=== PATIENT | male | born 1985 | race Hispanic/Latino ===

== ENCOUNTER 2019-03-07 23:09 | Emergency (ER) | payer SELFPAY ==
[~2019-03-07] VITALS: Ht 162.6 cm; Wt 158.8 kg
--- OUTSIDE RECORDS SUMMARY | 2019-03-07 23:11 | XMS REPORT | Clinical Summary ---
Author Author [facility] Organization [facility] Address Unknown Phone Unavailable Care Team Providers Care Managing Supervisor Name Role Phone PCP Unavailable Allergies No Known Allergies Medications End Date Status Medication Sig Dispensed Refills Start Date Active acetaminophen (TYLENOL) Take 1 tablet 30 tablet 0 500 mg tabletIndications: by mouth 9 Hidradenitis, Abscess every 6 hours as needed for Pain. 02/15/2019 doxycycline monohydrate Take 1 28 capsule 0 (MONODOX) 100 mg capsule by 9 capsuleIndications: mouth 2 times Hidradenitis, Abscess daily for 14 days. 02/08/2019 mupirocin (BACTROBAN) 2 % Apply to 22 g 0 ointmentIndications: affected area 9 Hidradenitis, Abscess 3 times daily for 7 days. Active Problems Not on file Encounters Care Team Description Date Type Specialty Hayden Castellanos MD SOB (shortness of breath) (Primary Dx); Hidradenitis; Abscess 02/01/2019 Emergency Emergency Medicine 02/01/2019 Travel after 03/06/2018 Social History Date Tobacco Use Types Packs/Day Years Used Current Every Day Smoker Cigarettes 1 Smokeless Tobacco: Never Used Drinks/Week oz/Week Comments Alcohol Use No Sex Assigned at Date Recorded Not on file Industry Job Start Date Occupation Not on file Not on file Not on file Travel End Travel History Travel Start No recent travel history available. Last Filed Vital Signs Reading Time Taken Comments Vital Sign 128/72 02/01/2019 3:44 PM CDT Blood Pressure 93 02/01/2019 3:44 PM CDT Pulse 36.7 C (98.1 F) 02/01/2019 3:44 PM CDT Temperature 18 02/01/2019 3:44 PM CDT Respiratory Rate 98% 02/01/2019 3:44 PM CDT Oxygen Saturation - - Inhaled Oxygen Concentration 157.5 kg (347 lb 4.8 oz) 02/01/2019 11:35 AM CDT Weight - - Height - - Body Mass Index Plan of Treatment Health Maintenance Due Date Last Done Comments IMM Influenza Seasonal 07/13/2019 Oct to December (>/=19 yrs) Procedures Comments Procedure Name Priority Date/Time Associated Diagnosis I&D OF ABSCESS Routine 02/01/2019 3:46 PM CDT XRAY CHEST 2 VIEWS STAT 02/01/2019 SOB (shortness of breath) 1:42 PM CDT 12 LEAD EKG Routine 02/01/2019 11:43 AM CDT GLUCOSE POC Routine 02/01/2019 11:38 AM CDT after 03/06/2018 Results * I&D of Abscess (02/01/2019 3:46 PM CDT) Narrative Performed At Ivan Andrea NP 02/01/20195:29 PM I&D of Abscess Date/Time: 02/01/2019 5:25 PM Performed by: Ivan Andrea NP Authorized by: Ivan Andrea NP Consent: Consent obtained:Verbal Consent given by:Patient Risks discussed:Bleeding and infection Alternatives discussed:No treatment Location: Type:Abscess Size:0.5 cm Location:Neck Neck location:R posterior Pre-procedure details: Skin preparation:Betadine Anesthesia (see MAR for exact dosages): Anesthesia method:Topical application and local infiltration Local anesthetic:Lidocaine 1% w/o epi Procedure type: Complexity:Simple Procedure details: Needle aspiration: no Incision types:Stab incision Incision depth:Subcutaneous Scalpel blade:11 Drainage:Bloody Drainage amount:Scant Wound treatment:Wound left open Packing materials:None Post-procedure details: Patient tolerance of procedure:Tolerated well, no immediate complications * XRAY CHEST 2 VIEWS (02/01/2019 1:42 PM CDT) Specimen Impressions Performed At IMPRESSION: [facility] No acute cardiopulmonary abnormality. This [facility] radiology report is a preliminary resident dictation until finalized by an attending.Changes to this preliminary report may occur in an additional preliminary or finalized version. Signed By: Maximus Pate MD, 02/01/2019 2:45 PM Narrative Performed At EXAM: XR CHEST 2 VIEWS [facility] DATE: 02/01/2019 1:42 PM INDICATION: Shortness of breath, cough, COPD. COMPARISON: None. TECHNIQUE: PA and lateral chest radiographs FINDINGS: Lines, tubes and hardware: None. Lungs and pleura: The lungs are clear. The costophrenic sulci are sharp, without pleural effusion. No pneumothorax is identified. Heart and mediastinum: The heart size is normal. The mediastinal contours are normal. Pulmonary vascularity is normal. Bones: No acute bony abnormality. Procedure Note Interface, Rad/Mammog In - 02/01/2019 2:50 PM CDT EXAM: XR CHEST 2 VIEWS DATE: 02/01/2019 1:42 PM INDICATION: Shortness of breath, cough, COPD. COMPARISON: None. TECHNIQUE: PA and lateral chest radiographs FINDINGS: Lines, tubes and hardware: None. Lungs and pleura: The lungs are clear. The costophrenic sulci are sharp, without pleural effusion. No pneumothorax is identified. Heart and mediastinum: The heart size is normal. The mediastinal contours are normal. Pulmonary vascularity is normal. Bones: No acute bony abnormality. IMPRESSION IMPRESSION: No acute cardiopulmonary abnormality. This [facility] radiology report is a preliminary resident dictation until finalized by an attending. Changes to this preliminary report may occur in an additional preliminary or finalized version. 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: [id number] :1985-0 01-13 Requested By: HAYDEN CASTELLANOS Order Number: [id number] Reading MD: Nithin Sanchez Measurements Intervals [place] Rate: 104 P: 46 AL: 177 QRS: 85 QRSD: 92 T:25 QT: 370 QTc:487 Interpretive Statements SINUS TACHYCARDIA NONSPECIFIC T-WAVE ABNORMALITY ABNORMAL RHYTHM ECG PROLONGED QTC INTERVAL Electronically Signed On 02-01-2019 16:08:12 CDT by Nithin Sanchez Specimen Performing Organization Address City/[facility] Phone Number SMS * GLUCOSE POC (02/01/2019 11:38 AM CDT) Glucose POC 213 (H) 74 - 106 mg/dL [facility] 1 Specimen Performing Organization Address City/State/Zipcode Phone Number [facility] MAIN-[facility] 1 after 03/06/2018 Insurance Type Payer Benefit Subscriber ID Effective Phone Address Plan / Dates Group [employer] HMO [employer] xxxxxxxxx 2018- [phone] [address] [address] [place] [address]
--- OUTSIDE RECORDS SUMMARY | 2019-03-07 23:12 | XMS REPORT | Continuity of Care Document ---
Author Author [facility] Interface Address Unknown Phone Unavailable Problems Problem Status Onset Date Classification Date Reported Comments Source SOB Active 02/08/2019 [facility] Hidradenitis Active 02/08/2019 [facility] Abscess Active 02/08/2019 [facility] Medications Medication Details Route Status Patient Instructions Ordering Provider Order Date Source doxycycline monohydrate (MONODOX) 100 mg capsule Take 1 capsule by mouth 2 times daily for 14 days. Oral Active 02/01/2019 [facility] mupirocin (BACTROBAN) 2 % ointment Apply to affected area 3 times daily for 7 days. Topical Active 02/01/2019 [facility] acetaminophen (TYLENOL) 500 mg tablet Take 1 tablet by mouth every 6 hours as needed for Pain. Oral Active 02/01/2019 [facility] Allergies, Adverse Reactions, Alerts Substance Category Reaction Severity Reaction type Status Date Reported Comments Source Immunizations Immunization Date Given Site Status Last Updated Comments Source Results Order Name Results Value Reference Range Date Interpretation Comments Source 12 LEAD EKG 12 LEAD EKG FOR [facility] Test Date:2019-02-01 Pat Name: SUZE SIUDepartment: 6520 : Gender: MTechnician: [id number] :1985 Requested By: HAYDEN CASTELLANOS Order Number: [id number] : Nithin Sanchez Measurements IntervalsAxis Rate: 104P:46 ME: 177QRS:85 QRSD: 92 T:25 QT: 370 QTc:487 Interpretive Statements SINUS TACHYCARDIA NONSPECIFIC T-WAVE ABNORMALITY ABNORMAL RHYTHM ECG PROLONGED QTC INTERVAL Electronically Signed On 02-01-2019 16:08:12 CDT by Nithin Sanchez 02/01/2019 [facility] I&D of Abscess <p>Ivan Andrea NP 02/01/20195:29 PM</p><p>I&D of Abscess</p><p>Date/Time: 02/01/2019 5:25 PM</p><p>Performed by: Ivan Andrea NP</p><p>Authorized by: Ivan Andrae NP </p><p> </p><p>Consent: </p><p>Consent obtained:Verbal</p><p>Consent given by:Patient</p><p>Risks discussed:Bleeding and infection</p><p>Alternatives discussed:No treatment</p><p>Location: </p><p>Type:Abscess</p><p>Size:0.5 cm </p><p>Location:Neck</p><p>Neck location:R posterior</p><p>Pre-procedure details: </p><p>Skin preparation:Betadine</p><p>Anesthesia (see MAR for exact dosages): </p><p>Anesthesia method:Topical application and local infiltration</p><p>Local anesthetic:Lidocaine 1% w/o epi</p><p>Procedure type: </p><p>Complexity:Simple</p><p>Procedure details: </p><p>Needle aspiration: no</p><p>Incision types:Stab incision</p><p>Incision depth:Subcutaneous</p><p>Scalpel blade:11</p>&l t;p>Drainage:Bloody</p><p>Drainage amount:Scant</p><p>Wound treatment:Wound left open</p><p>Packing materials:None</p><p>Post-procedure details: </p><p>Patient tolerance of procedure:Tolerated well, no immediate </p><p>complications</p> <p>Ivan Andrea NP 02/01/20195:29 PM</p><p>I&D of Abscess</p><p>Date/Time: 02/01/2019 5:25 PM</p><p>Performed by: Ivan Andrea NP</p><p>Authorized by: Ivan Andrea NP </p><p> </p><p>Consent: </p><p>Consent obtained:Verbal</p><p>Consent given by:Patient</p><p>Risks discussed:Bleeding and infection</p><p>Alternatives discussed:No treatment</p><p>Location: </p><p>Type:Abscess</p><p>Size:0.5 cm </p><p>Location:Neck</p><p>Neck location:R posterior</p><p>Pre-procedure details: </p><p>Skin preparation:Betadine</p><p>Anesthesia (see MAR for exact dosages): </p><p>A nesthesia method:Topical application and local infiltration</p><p>Local anesthetic:Lidocaine 1% w/o epi</p><p>Procedure type: </p><p>Complexity:Simple</p><p>Procedure details: </p><p>Needle aspiration: no</p><p>Incision types:Stab incision</p><p>Incision depth:Subcutaneous</p><p>Scalpel blade:11</p>&l t;p>Drainage:Bloody</p><p>Drainage amount:Scant</p><p>Wound treatment:Wound left open</p><p>Packing materials:None</p><p>Post-procedure details: </p><p>Patient tolerance of procedure:Tolerated well, no immediate </p><p>complications</p> 02/01/2019 [facility] XRAY CHEST 2 VIEWS IMPRESSION: No acute cardiopulmonary abnormality. This [facility] radiology report is a preliminary resident dictation until finalized by an attending.Changes to this preliminary report may occur in an additional preliminary or finalized version. Signed By: Maximus Pate MD, 02/01/2019 2:45 PM EXAM: XR CHEST 2 VIEWS DATE: 02/01/2019 [...] is normal. Bones: No acute bony abnormality. Interface, Rad/Mammog In - 02/01/2019 2:50 PM [...] IMPRESSION IMPRESSION: No acute cardiopulmonary abnormality. This [facility] radiology report is a preliminary resident dictation until finalized by an attending. Changes to this preliminary report may occur in an additional preliminary or finalized version. Signed By: Maximus Pate MD, 02/01/2019 2:45 PM 02/01/2019 [facility] GLUCOSE POC Glucose POC 213 mg/dL 74 - 106 02/01/2019 [facility] GLUCOSE POC Lab Interpretation Abnormal 02/01/2019 [facility] 12 LEAD EKG 12 LEAD EKG FOR [facility] Test Date:2017-07-10 Pat Name: SUZE SIUDepartment: : Gender: MTechnician: [id number] :1985 Requested By: Order Number:Reading MD: Nithin Sanchez Measurements IntervalsAxis Rate: 83 P:35 ME: 173QRS:76 QRSD: 98 T:43 QT: 345 QTc:407 Interpretive Statements SINUS RHYTHM WITH SINUS ARRHYTHMIA NORMAL EKG Electronically Signed On 07-11-17 16:53:39 CDT by Nithin Sanchez 07/10/2017 [facility] Vital Signs Vital Sign Value Date Comments Source Systolic (mm Hg) 128 02/01/2019 [facility] Diastolic (mm Hg) 72 02/01/2019 [facility] Heart Rate 93 02/01/2019 [facility] Temperature Oral (F) 36.72 Mindy 02/01/2019 [facility] Respitory Rate 18 02/01/2019 [facility] Weight 157.534 02/01/2019 [facility] Systolic (mm Hg) 155 07/11/2017 [facility] Diastolic (mm Hg) 98 07/11/2017 [facility] Heart Rate 99 07/11/2017 [facility] Temperature Oral (F) 36.67 Mindy 07/11/2017 [facility] Respitory Rate 22 07/11/2017 [facility] Weight 156.808 07/11/2017 [facility] Encounters Location Location Details Encounter Type Encounter Number Reason For Visit Attending Provider ADM Date DC Date Status Source Emergency Center ([id number]) [facility] Emergency [id number] Miguel Brooks MD 07/11/2017 07/11/2017 [facility] Travel [id number] 02/01/2019 [facility] Emergency Center (5720) [facility] Emergency [id number] Hayden Castellanos MD 02/01/2019 02/01/2019 [facility] Procedures Procedure Code Date Perfomer Comments Source I&D OF ABSCESS [id number] [facility] 0[facility]52 02/01/2019 Godinez [facility] 12 LEAD EKG [id number] 02/01/2019 Jasmin [facility] GLUCOSE POC [id number] 02/01/2019 Unknown [facility]
--- OUTSIDE RECORDS SUMMARY | 2019-03-07 23:12 | XMS REPORT | Clinical Summary ---
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 Name Role Phone Arnold Neville MD PCP Unavailable Allergies No Known Allergies Medications End Date Status Medication Sig Dispensed Refills Start Date Active atorvastatin (LIPITOR) 10 TAKE 1 TABLET 3 MG tablet BY MOUTH 9 EVERY DAY AT NIGHT Active acetaminophen-codeine TAKE 1 TABLET 0 (TYLENOL WITH CODEINE #3) BY MOUTH 9 300-30 mg per tablet EVERY 4 TO 6 HOURS NEEDED FOR PAIN Active benztropine (COGENTIN) 2 TAKE 1 TABLET 2 MG tablet BY MOUTH 9 EVERY DAY AT BEDTIME TO PREVENT EPS Active cetirizine (ZyrTEC) 10 MG TAKE 1 TABLET 0 tablet BY MOUTH 9 EVERYDAY AT BEDTIME Active JARDIANCE 25 mg tablet Take 25 mg by 1 mouth daily. 9 Active metFORMIN (GLUCOPHAGE) 0 1,000 mg tablet 9 Active LANTUS SOLOSTAR U-100 INJECT 50 1 INSULIN 100 unit/mL UNIT(S) EVERY 9 injection (pen) DAY BY SUBCUTANEOUS ROUTE FOR 30 DAYS. Active VITAMIN D2 50,000 unit TAKE ONE 2 capsule CAPSULE BY 9 MOUTH ONE TIME PER WEEK Active lamoTRIgine (LaMICtal) 25 TAKE 2 2 MG tablet TABLET(S) BY 9 MOUTH IN THE MORNING. Active IBU 800 mg tablet Take 800 mg 0 by mouth 3 9 (three) times a day as needed. Active omeprazole (PriLOSEC) 20 Take by mouth 1 MG capsule daily. 9 Active traMADol (ULTRAM) 50 mg TAKE 1 TABLET 0 tablet BY MOUTH 9 EVERY 4 HOURS NEEDED FOR PAIN WITH FOOD Active traZODone (DESYREL) 100 Take by 0 MG tablet mouth. Active CHANTIX STARTING MONTH TAKE 1 0 BOX 0.5 mg (11)- 1 mg STARTER PACK 9 (42) tablet DIRECTED BY ORAL ROUTE Active aspirin (ECOTRIN) 81 MG Take 81 mg by 0 enteric coated tablet mouth daily. 10/20/2018 clotrimazole (LOTRIMIN) 1 Apply to 15 g 0 % cream affected area 8 2 times daily Active Problems Not on file Encounters Care Team Description Date Type Specialty Nithin Melara MD 03/02/2019 Anesthesia General Surgery Event Dar Owens MD Preoperative testing (Primary Dx) 03/02/2019 Pre-Admit Pre-Admission Testing Testing Appointment after 03/06/2018 Family History * Patient is adopted Relation Name Status Comments Father Alive Mother Alive Social History Date Tobacco Use Types Packs/Day Years Used Current Every Day Smoker Cigarettes 1 Smokeless Tobacco: Never Used Alcohol Use Drinks/Week oz/Week Comments No Sex Assigned at Date Recorded Not on file Industry Job Start Date Occupation Not on file Not on file Not on file Travel End Travel History Travel Start No recent travel history available. Last Filed Vital Signs Time Taken Vital Sign Reading 03/02/2019 12:24 PM CDT Blood Pressure 135/70 03/02/2019 12:24 PM CDT Pulse 84 03/02/2019 12:24 PM CDT Temperature 37 C (98.6 F) 03/02/2019 12:24 PM CDT Respiratory Rate 20 03/02/2019 12:24 PM CDT Oxygen Saturation 95% - Inhaled Oxygen - Concentration 03/02/2019 12:24 PM CDT Weight 155 kg (342 lb) 03/02/2019 12:24 PM CDT Height 160 cm (5' 3") 03/02/2019 12:24 PM CDT Body Mass Index 60.58 Plan of Treatment Health Maintenance Due Date Last Done Comments INFLUENZA VACCINE 05/13/2019 Procedures Comments Procedure Name Priority Date/Time Associated Diagnosis XR CHEST 2 VW Routine 03/02/2019 Preoperative testing 12:30 PM CDT ECG 12-LEAD Routine 03/02/2019 Preoperative testing 12:19 PM CDT ESTIMATED GFR Routine 03/02/2019 12:10 PM CDT HEMOGLOBIN A1C Routine 03/02/2019 Preoperative testing 12:10 PM CDT BASIC METABOLIC PANEL Routine 03/02/2019 Preoperative testing 12:10 PM CDT after 03/06/2018 Results * XR Chest 2 Vw (03/02/2019 12:30 PM CDT) Specimen Narrative Performed At EXAMINATION: XR CHEST 2 VW [facility] INDICATION: Z01.818 Encounter for other preprocedural examination, pre-op COMPARISON: None IMPRESSION: Heart size is normal. Low lung volumes without evidence of focal airspace disease, effusion, or pneumothorax. [facility] [place]-[id number] Procedure Note Interface, Radiology Results Incoming - 03/02/2019 12:37 PM CDT EXAMINATION: XR CHEST 2 VW INDICATION: Z01.818 Encounter for other preprocedural examination, pre-op COMPARISON: None IMPRESSION: Heart size is normal. Low lung volumes without evidence of focal airspace disease, effusion, or pneumothorax. [facility] [place]-[id number] Performing Organization Address City/[facility]/Zipcode Phone Number [facility] [address] [place] [address] * ECG 12 lead (03/02/2019 12:19 PM CDT) Ventricular 89 [facility] MUSE rate Atrial rate 89 [facility] HI interval 172 [facility] QRSD interval 80 [facility] QT interval 350 [facility] QTC interval 425 [facility] P axis 1 39 [facility] QRS axis 1 73 [facility] T wave axis 44 [facility] EKG impression Normal sinus rhythm-Normal [facility] MUSE ECG-No previous ECGs available- Specimen Narrative Performed At Performing Organization Address [facility] Phone Number [facility] MUSE [address] [place] [address] * Estimated GFR (03/02/2019 12:10 PM CDT) Estimated GFR >=90 mL/min/1.73 m2 [place] Comment: RASTAFARISILVANA [facility] G1 >=90 Normal or high G2 60-89Mildly decreased U1m10-20 Mildly to moderately decreased N6e64-49 Moderately to severely decreased G4 15-29Severely decreased G5 <15Kidney failure The eGFR was calculated using the Chronic Kidney Disease Epidemiology Collaboration (CKD-EPI) equation. Interpretation is based on recommendations of the National Kidney Foundation-Kidney Disease Outcomes Quality Initiative (NKF-KDOQI) published in 2014. Specimen Plasma specimen Performing Organization Address City/[facility]/Zipcode Phone Number [facility] DEPARTMENT OF [address] [place] [address] PATHOLOGY AND [facility] MEDICINE [address] * Hemoglobin A1c (03/02/2019 12:10 PM CDT) Hemoglobin A1C 10.6 (H) 4.0 - 5.6 % [place] Comment: NATE SANTANA HbA1c cutoffs for diagnosing ON LICENSE OF [facility] diabetes: HOSPITAL 4.0% - 5.6%=normal 5.7% - 6.4%=increased risk for diabetes (prediabetes) >=6.5%=diabetes Goals for glycemic control (ADA 2016) < 7.0%Target for non adults with diabetes. More or less stringent targets may be appropriate for individual patients. <7.5% Target for Children and adolescents with type 1 diabetes. Specimen Blood Performing Organization Address City/[facility] Cent[facility] Phone Number [address] [place] [phone] PATHOLOGY AND [facility] MEDICINE [address] * Basic metabolic panel (03/02/2019 12:10 PM CDT) Sodium 135 135 - 150 mEq/L [facility] Potassium 3.8 3.5 - 5.0 mEq/L [facility] Chloride 97 (L) 98 - 112 mEq/L [facility] CO2 29 24 - 31 mmol/L [facility] Anion gap 9@ANIO 7 - 15 mEq/L [facility] BUN 12 7 - 18 mg/dL [facility] Creatinine 0.80 0.70 - 1.20 mg/dL [facility] Glucose 342 (H) 65 - 100 mg/dL [facility] Calcium 9.4 8.3 - 10.2 mg/dL [facility] Specimen Plasma specimen Performing Organization Address City/State/Zipcode Phone Number [facility] DEPARTMENT OF [address] [place] [address] PATHOLOGY AND GENOMIC MEDICINE [facility] [address] [place], [place] [id number] [place] [address] after 03/06/2018 Insurance Type Payer Benefit Subscriber ID Effective Phone Address Plan / Dates Group HMO [employer] xxxxxxxxx 2016-[id number] [employer] [facility] Advance Directives Patient has advance care planning documents on file. For more information, pedro sheppard contact: Jd Ray [address] [place] [address]
--- OUTSIDE RECORDS SUMMARY | 2019-03-07 23:12 | XMS REPORT | Clinical Summary ---
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 02/08/2019 Active mupirocin (BACTROBAN) 2 % Apply to 22 g 0 ointmentIndications: affected area 9 Hidradenitis, Abscess 3 times daily for 7 days. Active acetaminophen (TYLENOL) Take 1 tablet 30 tablet 0 500 mg tabletIndications: by mouth 9 Hidradenitis, Abscess every 6 hours as needed for Pain. Active Problems Not on file Encounters Care Team Description Date Type Specialty Hayden Castellanos MD SOB (shortness of breath) (Primary Dx); Hidradenitis; Abscess 02/01/2019 Emergency Emergency Medicine 02/01/2019 Travel after 02/07/2018 Social History Date Tobacco Use Types Packs/Day [...] Vital Signs Time Taken Vital Sign Reading 02/01/2019 3:44 PM CDT Blood Pressure 128/72 02/01/2019 3:44 PM CDT Pulse 93 02/01/2019 3:44 PM CDT Temperature 36.7 C (98.1 F) 02/01/2019 3:44 PM CDT Respiratory Rate 18 02/01/2019 3:44 PM CDT Oxygen Saturation 98% - Inhaled Oxygen - Concentration 02/01/2019 11:35 AM CDT Weight 157.5 kg (347 lb 4.8 oz) - Height - - Body Mass Index - Plan of Treatment Health Maintenance Due Date [...] POC Routine 02/01/2019 11:38 AM CDT after 02/07/2018 Results * I&D of Abscess (02/01/2019 3:46 [...] CHEST 2 VIEWS (02/01/2019 1:42 PM CDT) Impressions Performed At IMPRESSION: [facility] No acute cardiopulmonary abnormality. This [facility] radiology report is a preliminary resident dictation until finalized by an attending.Changes to this preliminary report may occur in an additional preliminary or finalized version. Signed By: Maximus Pate MD, 02/01/2019 2:45 PM Narrative Performed At EXAM: XR CHEST 2 VIEWS [facility] DATE: 02/01/2019 1:42 PM INDICATION: Shortness [...] IMPRESSION IMPRESSION: No acute cardiopulmonary abnormality. This [facility] radiology report is a preliminary resident dictation until finalized by an attending. Changes to this preliminary report may occur in an additional preliminary or finalized version. 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 :1985-0 01-13 Requested By: HAYDEN CASTELLANOS Order Number: [id number] Reading MD: Nithin Sanchez Measurements Intervals [place] Rate: 104 P: 46 MS: 177 QRS: 85 QRSD: 92 T:25 QT: 370 QTc:487 Interpretive Statements SINUS TACHYCARDIA NONSPECIFIC T-WAVE ABNORMALITY ABNORMAL RHYTHM ECG PROLONGED QTC INTERVAL Electronically Signed On 02-01-2019 16:08:12 CDT by Nithin Sanchez Performing Organization Address [facility] Phone Number SMS * GLUCOSE POC (02/01/2019 11:38 AM CDT) Glucose POC 213 (H) 74 - 106 mg/dL [facility] Performing Organization Address City/State/Zipcode Phone Number [facility] after 02/07/2018 Insurance Type Payer Benefit Subscriber ID Effective Phone Address Plan / Dates Group [employer] HMO [employer] xxxxxxxxx 2018- [phone] [address] [address] [place] [address]
--- OUTSIDE RECORDS SUMMARY | 2019-03-07 23:12 | XMS REPORT | Clinical Summary ---
Author Author [facility] Organization [facility] Address Unknown Phone Unavailable Care Team Providers Care Net Developer Architect Name Role Phone PCP Unavailable Allergies No Known Allergies Current Medications No known medications Active Problems Not on file Encounters Date Type Specialty Care Team Description 07/10/2017 Emergency Emergency Medicine Miguel Brooks MD after 04/01/2017 Social History Tobacco Use Types Packs/Day Years Used Date Current Every Day Smoker Cigarettes 1 Smokeless Tobacco: Never Used Alcohol Use Drinks/Week oz/Week Comments No Sex Assigned at Date Recorded Not on file Last Filed Vital Signs Vital Sign Reading Time Taken Blood Pressure 155/98 07/10/2017 7:57 PM CDT Pulse 99 07/10/2017 7:57 PM CDT Temperature 36.7 C (98 F) 07/10/2017 7:57 PM CDT Respiratory Rate 22 07/10/2017 7:57 PM CDT Oxygen Saturation 96% 07/10/2017 7:57 PM CDT Inhaled Oxygen - - Concentration Weight 156.8 kg (345 lb 11.2 oz) 07/10/2017 7:57 PM CDT Height - - Body Mass Index - - Plan of Treatment Not on file Results * 12 LEAD EKG (07/10/2017 8:17 PM) Component Value Ref Range 12 LEAD EKG FOR [facility] Test Date:2017-07-10 Pat Name: SUZE SIUDepartment: : Gender: DALE 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
--- OUTSIDE RECORDS SUMMARY | 2019-03-07 23:12 | XMS REPORT | Clinical Summary ---
Author Author [facility] Organization [facility] Address Unknown Phone Unavailable Care Team Providers Care Packing Checker Name Role Phone PCP Unavailable Allergies No Known Allergies Current Medications No known medications Active Problems Not on file Encounters Date Type Specialty Care Team Description 07/10/2017 Emergency Emergency Medicine Miguel Brooks MD after 04/02/2017 Social History Tobacco Use Types Packs/Day Years [...] Ref Range 12 LEAD EKG FOR [facility] Test Date:2017-07-10 Pat Name: SUZE SIUDepartment: : Gender: DALE echnician: [id number] :1985 Requested By: Order Number: Reading : Nithin Sanchez Measurements Intervals [place] Rate: 83 P:35 [place]: 173QRS :76 QRSD: 98 T:43 QT: 345 QTc:407 Interpretive Statements SINUS RHYTHM WITH SINUS ARRHYTHMIA NORMAL EKG Electronically Signed On 07-11-17 16:53:39 CDT by Nithin Sanchez Specimen Performing Laboratory SMS after 04/02/2017
--- OUTSIDE RECORDS SUMMARY | 2019-03-07 23:12 | XMS REPORT | Clinical Summary ---
Author Author [facility] Organization [facility] Address Unknown Phone Unavailable Care Team Providers Care Business Objects Name Role Phone PCP Unavailable Allergies No Known Allergies Current Medications No known medications Active Problems Not on file Encounters Date Type Specialty Care Team Description 07/10/2017 Emergency Emergency Medicine Miguel Brooks MD after 03/24/2017 Social History Tobacco Use Types Packs/Day Years [...] Ref Range 12 LEAD EKG FOR [facility] Test Date:2017-07-10 Pat Name: SUZE SIUDepartment: : Gender: DALE 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
--- OUTSIDE RECORDS SUMMARY | 2019-03-07 23:12 | XMS REPORT | Summary of Care ---
Author Author LORI Solano, JULIETA Organization Unknown Address Unknown Phone Unavailable Care Team Providers Care Pony Roll Finisher Name Role Phone LORI Solano, JULIETA Unavailable Unavailable Sherry Rodríguez MD Unavailable Unavailable [facility] Unavailable Unavailable LORI CELIS PA, JULIETA Malone Unavailable Unavailable Unavailable Unavailable Functional Status Name Dates Details Functional status health issues are not documented Status: Name Dates Details Cognitive status health issues are not documented Status: Problems Name Dates Details Muscular chest pain (786.59, R07.89) Status: Active Tremor of unknown origin (781.0, R25.1) Status: Active Arm pain, diffuse, left (729.5, M79.602) Status: Active Encounter to establish care (V65.8, Z76.89) Status: Active H/O alcohol abuse (305.03, Z87.898) Status: Active Attention deficit hyperactivity disorder (ADHD), unspecified ADHD type (314.01, F90.9) Status: Active Schizophrenia (295.90, F20.9) Status: Active Boil of neck (680.1, L02.12) Status: Active Elevated liver function tests (790.6, R79.89) Status: Active Obesity, morbid (more than 100 lbs over ideal weight or BMI > 40) (278.01, E66.01) Status: Active Tobacco abuse (305.1, Z72.0) Status: Active Medications Name Dates Details Depakote 500 MG Oral Tablet Delayed Release Take 1 tab in the am and 2 tabs in the pm. R.N. Active TraZODone HCl - 100 MG Oral Tablet Take tabs as needed at bedtime. * Refills: 0 R.N. Active Geodon 40 MG Oral Capsule TAKE 1 CAPSULE TWICE DAILY. * Refills: 0 R.N. Active Wellbutrin XL 150 MG Oral Tablet Extended Release 24 Hour take one a day for first 3 days, then take one twice a day. * Quantity: 2 Refills: 0 JULIETA ARTEAGA M.D. * Start : 28-Nov-2016 Active 90 Tablet Extended Release 24 Hour Bottle Clindamycin HCl - 150 MG Oral Capsule TAKE 2 CAPSULE Every 8 hours x7days * Refills: 0 R.N. Active Allergies and Adverse Reactions Name Dates Details No Known Drug Allergies (Allergy) Status: Active Procedures Procedure Dates Details [QLH] ALPHA-FETOPROTEIN (AFP) AND AFP-L3 Date: 18-Jul-2017 US Abdomen complete [id number] Date: 18-Jul-2017 Immunization Name Dates Details Immunizations not documented Social History Name Dates Details Unknown if ever smoked Vital Signs Date Test Result Details No Known Vitals to report Results Date Description Value Details [id number] US Abdomen complete 75341 Abdomen complete US SEE NOTES Comments: Patient Name: SUZE SIUDOB: 1985; Age: 32 years y/o MaleMR: [id number]: Abdomen complete US 08/23/2017 9:47 AM CSTOrdering Physician: Julieta Arteaga MDClinical Indication: - R79.89 Other specified abnormal findings of bloodchemistry; Comparison: NoneTECHNIQUE:Grayscale and limited color sonographic evaluation of the abdomen was performedwith standard technique.FINDINGS:LIVER:Diffusely hyperechoic liver suggesting fatty infiltration. No focal lesion orduct dilatation.BILE DUCTS:The intrahepatic and extrahepatic bile ducts are not dilated with the commonbile duct measuring 6 mm.The distal common bile duct is not well seen.GALLBLADDER:There are no gallstones, gallbladder sludge, pericholecystic fluid or wallthickening.PANCREAS:The visualized pancreas appears unremarkable..SPLEEN:The spleen is unremarkable and measures 12 cm in length.KIDNEY:The right kidney measures 10.5 x 5.4 x 6.2 cm. The left kidney measures 12.1 x 6.4 x 5.6 cm.No pelvocaliectasis, nephrolithiasis or renal mass lesion identifiedbilaterally.AORTA AND INFERIOR VENA CAVA:Not adequately visualized.ASCITES:There is no abdominal ascites.IMPRESSION:Hepatic steatosis. No hepatic lesion, or biliary ductal dilatation.Normal gallbladder.SL: [id number] by: Aguilar Calvert MDDictated Date/time: 08/23/17 11:07Electronically Signed by: Aguilar Calvert MD 08/23/1711:09FINAL REPORT Plan of Care Name Dates Details Planned Observations Planned Goals not documented Planned Encounters Appointment; JULIETA ARTEAGA M.D. On: 02-Sep-2017 17:00 Interventions Provided Discussion/Summary* Dear Mr. Siu: * Your ultrasound of liver report is back which confirmed you have fatty liver. * Please try to have weight reduction as much as you can, or you need to have gastric bypass. * I will see you next week. Instructions Name Dates Details Instructions not documented Encounters Appointment; JULIETA ARTEAGA M.D. Encounter Diagnosis: Problem not documented On: 29-Oct-2016 14:00 Appointment; JULIETA ARTEAGA M.D. Encounter Diagnosis: Problem not documented On: 18-Nov-2016 10:20 Appointment; JULIETA ARTEAGA M.D. Encounter Diagnosis: Problem not documented On: 28-Nov-2016 14:20 Appointment; JULIETA ARTEAGA M.D. Encounter Diagnosis: Problem not documented On: 27-Jan-2017 8:40 Appointment; JULIETA ARTEAGA M.D. Encounter Diagnosis: Problem not documented On: 20-May-2017 10:20 Appointment; JULIETA ARTEAGA M.D. Encounter Diagnosis: Problem not documented On: 18-Jul-2017 10:40 Appointment; JULIETA ARTEAGA M.D. Encounter Diagnosis: Problem not documented On: 21-Jul-2017 16:00 Appointment; JULIETA ARTEAGA M.D. Encounter Diagnosis: Problem not documented On: 25-Jul-2017 8:20
--- OUTSIDE RECORDS SUMMARY | 2019-03-07 23:13 | XMS REPORT ---
[facility] Address Unknown Phone Unavailable Care Team Providers Care Senior Staff Consultant Name Role Phone Unavailable Unavailable Payers Payer Name Policy Type Policy Number Effective Date Expiration Date Problems This patient has no known problems. Allergies, Adverse Reactions, Alerts Allergy Name Allergy Type Status Severity Reaction(s) Onset Date Inactive Date Treating Clinician Comments No Known Allergies DA Active U 2019-03-06 00:00:00 tramadol DA Active MT 2019-03-05 00:00:00 No Known Allergies DA Active U 2019-03-05 00:00:00 No Known Allergies DA Active U 2019-02-19 00:00:00 No Known Allergies DA Active U 2019-02-01 00:00:00 No Known Allergies DA Active U 2019-01-06 00:00:00 No Known Allergies DA Active U 2018-11-05 00:00:00 No Known Allergies DA Active U 2018-11-03 00:00:00 No Known Allergies DA Active U 2018-10-12 00:00:00 No Known Allergies DA Active U 2018-08-19 00:00:00 No Known Allergies DA Active U 2018-08-16 00:00:00 No Known Allergies DA Active U 2018-08-15 00:00:00 No Known Allergies DA Active U 2018-07-19 00:00:00 No Known Allergies DA Active U 2017-05-08 00:00:00 Medications This patient has no known medications. Encounters Start Date/Time End Date/Time Encounter Type Admission Type Attending [facility] Care Facility Care Department Encounter ID 2019-02-08 03:53:00 2019-02-08 03:53:00 Emergency E [facility] [id number] 2019-02-01 14:28:05 2019-02-01 14:28:05 Emergency [facility] [id number] 2019-02-01 13:35:26 2019-02-01 13:35:26 Emergency [facility] [id number] 2017-07-10 21:11:01 2017-07-10 21:11:01 Emergency [facility] [id number] Results Test Description Test Time Test Comments Text Results Atomic Results Result Comments GLUBED 2019-03-07 12:03:00 GLUBED (test code=GLUBED) 152 mg/dL 74-106 Performed by certified forging roll operator at [facility] [id number] 07:49:00* Test Item Value Reference Range Comments GLUBED (test code=GLUBED) 110 mg/dL 74-106 Performed by certified forging roll operator at [facility] BASIC METABOLIC [id number] 07:42:00* Test Item Value Reference Range Comments SODIUM (test code=NA) 139 mmol/L 136-145 POTASSIUM (test code=K) 3.9 mmol/L 3.5-5.1 CHLORIDE (test code=CL) 105.0 mmol/L 98-107 CARBON DIOXIDE (test code=CO2) 29.0 mmol/L 21-32 ANION GAP (test code=GAP) 8.9 10-20 GLUCOSE (test code=GLU) 151 mg/dL 74-106 BLOOD UREA NITROGEN (test code=BUN) 17 mg/dL 7-18 GLOMERULAR FILTRATION RATE (test code=GFR) > 60 mL/min >=60 Estimated GFR by using Modified MDRD formula.Chronic kidney disease is defined as either kidney damageor GFR <60 mL/min/1.73 m2 for >3 months. CREATININE (test code=CREAT) 0.90 mg/dL 0.7-1.3 BUN/CREATININE RATIO (test code=BUN/CREA) 18.9 10-20 CALCIUM (test code=CA) 8.4 mg/dL 8.5-10.1 [id number] 07:42:00* Test Item Value Reference Range Comments MAGNESIUM (test code=MAG) 2.3 mg/dL 1.8-2.4 BASIC METABOLIC [id number] 07:38:00* Test Item Value Reference Range Comments SODIUM (test code=NA) 139 mmol/L 136-145 POTASSIUM (test code=K) 3.9 mmol/L 3.5-5.1 CHLORIDE (test code=CL) 105.0 mmol/L 98-107 CARBON DIOXIDE (test code=CO2) mmol/L 21-32 ANION GAP (test code=GAP) 10-20 GLUCOSE (test code=GLU) mg/dL 74-106 BLOOD UREA NITROGEN (test code=BUN) mg/dL 7-18 GLOMERULAR FILTRATION RATE (test code=GFR) mL/min >=60 CREATININE (test code=CREAT) mg/dL 0.7-1.3 BUN/CREATININE RATIO (test code=BUN/CREA) 10-20 CALCIUM (test code=CA) mg/dL 8.5-10.1 [id number] 07:38:00* Test Item Value Reference Range Comments MAGNESIUM (test code=MAG) mg/dL 1.8-2.4 CBC W/AUTO [id number] 07:29:00* Test Item Value Reference Range Comments WHITE BLOOD CELL (test code=WBC) 6.4 K/mm3 4.5-12.5 RED BLOOD CELL (test code=RBC) 5.23 mill/mm3 4.0-5.8 HEMOGLOBIN (test code=HGB) 13.8 gram/dL 13.0-17.5 HEMATOCRIT (test code=HCT) 45.0 % 42.0-52.0 MEAN CELL VOLUME (test code=MCV) 86.0 fL 80-98 MEAN CELL HGB (test code=MCH) 26.4 picogram 27.0-33.0 MEAN CELL HGB CONCETRATION (test code=MCHC) 30.7 gram/dL 33.0-36.0 RED CELL DISTRIBUTION WIDTH (test code=RDW) 14.0 % 11.6-16.2 RED CELL DISTRIBUTION WIDTH SD (test code=RDW-SD) 43.8 fL 37.0-51.0 PLATELET COUNT (test code=PLT) 244 K/mm3 150-450 MEAN PLATELET VOLUME (test code=MPV) 9.5 fL 6.7-11.0 NEUTROPHIL % (test code=NT%) 57.0 % 39.0-69.0 IMMATURE GRANULOCYTE % (test code=IG%) 0.6 % 0.0-5.0 LYMPHOCYTE % (test code=LY%) 29.2 % 25.0-55.0 MONOCYTE % (test code=MO%) 9.8 % 0.0-10.0 EOSINOPHIL % (test code=EO%) 3.1 % 0.0-5.0 BASOPHIL % (test code=BA%) 0.3 % 0.0-1.0 NUCLEATED RBC % (test code=NRBC%) 0.0 % 0-0 NEUTROPHIL # (test code=NT#) 3.65 K/mm3 1.8-7.7 IMMATURE GRANULOCYTE # (test code=IG#) 0.04 x10 3/uL 0-0.03 LYMPHOCYTE # (test code=LY#) 1.87 K/mm3 1.0-5.0 MONOCYTE # (test code=MO#) 0.63 K/mm3 0-0.8 EOSINOPHIL # (test code=EO#) 0.20 K/mm3 0.0-0.5 BASOPHIL # (test code=BA#) 0.02 K/mm3 0.0-0.2 NUCLEATED RBC # (test code=NRBC#) 0.00 K/mm3 0.0-0.1 MANUAL DIFF REQUIRED (test code=MDIFF) NO [id number] 20:22:00* Test Item Value Reference Range Comments GLUBED (test code=GLUBED) 192 mg/dL 74-106 Performed by certified forging roll operator at [facility] [id number] 16:55:00* Test Item Value Reference Range Comments GLUBED (test code=GLUBED) 176 mg/dL 74-106 Performed by certified forging roll operator at [facility] [id number] 12:39:00* Test Item Value Reference Range Comments GLUBED (test code=GLUBED) 147 mg/dL 74-106 Performed by certified forging roll operator at [facility] BASIC METABOLIC [id number] 09:03:00* Test Item Value Reference Range Comments SODIUM (test code=NA) 139 mmol/L 136-145 POTASSIUM (test code=K) 3.8 mmol/L 3.5-5.1 CHLORIDE (test code=CL) 101.0 mmol/L 98-107 CARBON DIOXIDE (test code=CO2) 31.0 mmol/L 21-32 ANION GAP (test code=GAP) 10.8 10-20 GLUCOSE (test code=GLU) 147 mg/dL 74-106 BLOOD UREA NITROGEN (test code=BUN) 15 mg/dL 7-18 GLOMERULAR FILTRATION RATE (test code=GFR) > 60 mL/min >=60 Estimated GFR by using Modified MDRD formula.Chronic kidney disease is defined as either kidney damageor GFR <60 mL/min/1.73 m2 for >3 months. CREATININE (test code=CREAT) 0.80 mg/dL 0.7-1.3 BUN/CREATININE RATIO (test code=BUN/CREA) 18.8 10-20 CALCIUM (test code=CA) 8.5 mg/dL 8.5-10.1 [id number] 09:00:00* Test Item Value Reference Range Comments GLYCOSYLATED HEMOGLOBIN (HA1C) (test code=GLYHGB) 10.3 % HbA1 4.8-6.0 ESTIMATED AVERAGE GLUCOSE (test code=EAG) 249 MG/DL BASIC METABOLIC [id number] 08:57:00* Test Item Value Reference Range Comments SODIUM (test code=NA) 139 mmol/L 136-145 POTASSIUM (test code=K) 3.8 mmol/L 3.5-5.1 CHLORIDE (test code=CL) 101.0 mmol/L 98-107 CARBON DIOXIDE (test code=CO2) mmol/L 21-32 ANION GAP (test code=GAP) 10-20 GLUCOSE (test code=GLU) mg/dL 74-106 BLOOD UREA NITROGEN (test code=BUN) mg/dL 7-18 GLOMERULAR FILTRATION RATE (test code=GFR) mL/min >=60 CREATININE (test code=CREAT) mg/dL 0.7-1.3 BUN/CREATININE RATIO (test code=BUN/CREA) 10-20 CALCIUM (test code=CA) mg/dL 8.5-10.1 [id number] 08:29:00* Test Item Value Reference Range Comments GLUBED (test code=GLUBED) 163 mg/dL 74-106 Performed by certified forging roll operator at [facility] CBC W/AUTO [id number] 08:28:00* Test Item Value Reference Range Comments WHITE BLOOD CELL (test code=WBC) 10.6 K/mm3 4.5-12.5 RED BLOOD CELL (test code=RBC) 5.51 mill/mm3 4.0-5.8 HEMOGLOBIN (test code=HGB) 14.5 gram/dL 13.0-17.5 HEMATOCRIT (test code=HCT) 46.0 % 42.0-52.0 MEAN CELL VOLUME (test code=MCV) 83.5 fL 80-98 RESULT VERIFIED BY REPEAT ANALYSIS MEAN CELL HGB (test code=MCH) 26.3 picogram 27.0-33.0 MEAN CELL HGB CONCETRATION (test code=MCHC) 31.5 gram/dL 33.0-36.0 RED CELL DISTRIBUTION WIDTH (test code=RDW) 14.1 % 11.6-16.2 RED CELL DISTRIBUTION WIDTH SD (test code=RDW-SD) 42.7 fL 37.0-51.0 PLATELET COUNT (test code=PLT) 277 K/mm3 150-450 MEAN PLATELET VOLUME (test code=MPV) 9.2 fL 6.7-11.0 NEUTROPHIL % (test code=NT%) 61.5 % 39.0-69.0 IMMATURE GRANULOCYTE % (test code=IG%) 0.5 % 0.0-5.0 LYMPHOCYTE % (test code=LY%) 25.1 % 25.0-55.0 MONOCYTE % (test code=MO%) 11.2 % 0.0-10.0 EOSINOPHIL % (test code=EO%) 1.3 % 0.0-5.0 BASOPHIL % (test code=BA%) 0.4 % 0.0-1.0 NUCLEATED RBC % (test code=NRBC%) 0.0 % 0-0 NEUTROPHIL # (test code=NT#) 6.53 K/mm3 1.8-7.7 IMMATURE GRANULOCYTE # (test code=IG#) 0.05 x10 3/uL 0-0.03 LYMPHOCYTE # (test code=LY#) 2.67 K/mm3 1.0-5.0 MONOCYTE # (test code=MO#) 1.19 K/mm3 0-0.8 EOSINOPHIL # (test code=EO#) 0.14 K/mm3 0.0-0.5 BASOPHIL # (test code=BA#) 0.04 K/mm3 0.0-0.2 NUCLEATED RBC # (test code=NRBC#) 0.00 K/mm3 0.0-0.1 MANUAL DIFF REQUIRED (test code=MDIFF) NO PROCALCITONIN (PCT)2019-03-05 23:20:00* Test Item Value Reference Range Comments PROCALCITONIN (PCT) (test code=PROCAL) 0.15 ng/ml Concentration Interpretation (ng/mL) <0.51 Sepsis is not likely. Local bacterial infection is possible. (LOW RISK for progression to Sepsis) 0.51 - 2.00 Sepsis is possible, but other conditions are known to elevate PCT as well. (MODERATE RISK for progression to Sepsis) > 2.00 Sepsis is likely, unless other causes are known. (HIGH RISK for progression to Severe Sepsis or Septic Shock) 10.00 High likelihood of Severe Sepsis or Septic or higher Shock. *Increased PCT levels may not always be related to systemic bacterial infection.*Low PCT levels do not automatically exclude the presence of bacterial infection.*All results should be interpreted taking into account the patients history. LACTIC [id number] 22:59:00* Test Item Value Reference Range Comments LACTIC ACID (test code=LACT) 1.3 mmol/L 0.4-1.9 BASIC METABOLIC [id number] 22:57:00* Test Item Value Reference Range Comments SODIUM (test code=NA) 137 mmol/L 136-145 POTASSIUM (test code=K) 3.6 mmol/L 3.5-5.1 CHLORIDE (test code=CL) 98.0 mmol/L 98-107 CARBON DIOXIDE (test code=CO2) 31.0 mmol/L 21-32 ANION GAP (test code=GAP) 11.6 10-20 GLUCOSE (test code=GLU) 182 mg/dL 74-106 BLOOD UREA NITROGEN (test code=BUN) 14 mg/dL 7-18 GLOMERULAR FILTRATION RATE (test code=GFR) > 60 mL/min >=60 Estimated GFR by using Modified MDRD formula.Chronic kidney disease is defined as either kidney damageor GFR <60 mL/min/1.73 m2 for >3 months. CREATININE (test code=CREAT) 1.00 mg/dL 0.7-1.3 BUN/CREATININE RATIO (test code=BUN/CREA) 14.0 10-20 CALCIUM (test code=CA) 9.1 mg/dL 8.5-10.1 [id number] 22:47:00* Test Item Value Reference Range Comments GLUBED (test code=GLUBED) 196 mg/dL 74-106 Performed by certified forging roll operator at [facility] - EXTREM NON VASC [id number] 22:40:00 Name: SUZE SIU [facility] : 1985 Age/S: 34 / M [address] [facility] Unit #: [id number] Loc: [place] [address] Phys: Fermín Agustin NP Acct: [id number] Dis Date: Status: REG ER PHONE #: [phone] Exam Date: 03/05/20192227 FAX #: [phone] Reason: R/O ABSCESS EXAMS: CPT CODE: [id number] EXTREM NON VASC LTD 79394 HISTORY: Abscess evaluation of the posterior left neck. COMPARISON: CT neck from February 26, 2019. Survey of the posterior neck at the site of patient's swelling and palpable abnormality demonstrating complex collection measuring 2 cm which is partially solid and partially fluid likely phlegmon without defined wall. This should be amenable for aspiration given its superficial location. No flow noted within it. Additional lesion measured 1.8 cm which also appears complex with poorly defined wall likely phlegmon and/or developing abscess. No flow noted within it. IMPRESSION: 2 complex collections which are partially solid and partially cystic in the posterior neck at the site of patient's swelling measuring 2 and 1.7 cm suggestive of phlegmon and/or developing abscess. These would be amenable for aspiration given their superficial location. at 9124 Reported and signed by: West Toussaint M.D. CC: Arnold Bertrand Jr, MD; Fermín Agustin NP Technologist: Pedrito fagan Trnscb Date/Time: 03/05/2019 (4822) renu [email or web address] Orig Print D/T: S: 03/05/2019 (3998) Probe: PAGE 1 Signed Report POC LACTIC [id number] 22:16:00* Test Item Value Reference Range Comments POC LACTIC ACID (test code=POCLAC) 1.19 MMOL/L 0.4-2.2 CBC W/AUTO [id number] 22:08:00* Test Item Value Reference Range Comments WHITE BLOOD CELL (test code=WBC) 13.4 K/mm3 4.5-12.5 RED BLOOD CELL (test code=RBC) 6.01 mill/mm3 4.0-5.8 HEMOGLOBIN (test code=HGB) 16.0 gram/dL 13.0-17.5 HEMATOCRIT (test code=HCT) 52.9 % 42.0-52.0 MEAN CELL VOLUME (test code=MCV) 88.0 fL 80-98 MEAN CELL HGB (test code=MCH) 26.6 picogram 27.0-33.0 MEAN CELL HGB CONCETRATION (test code=MCHC) 30.2 gram/dL 33.0-36.0 RED CELL DISTRIBUTION WIDTH (test code=RDW) 14.9 % 11.6-16.2 RED CELL DISTRIBUTION WIDTH SD (test code=RDW-SD) 45.6 fL 37.0-51.0 PLATELET COUNT (test code=PLT) 290 K/mm3 150-450 MEAN PLATELET VOLUME (test code=MPV) 9.3 fL 6.7-11.0 NEUTROPHIL % (test code=NT%) 77.7 % 39.0-69.0 IMMATURE GRANULOCYTE % (test code=IG%) 0.6 % 0.0-5.0 LYMPHOCYTE % (test code=LY%) 12.9 % 25.0-55.0 MONOCYTE % (test code=MO%) 8.1 % 0.0-10.0 EOSINOPHIL % (test code=EO%) 0.3 % 0.0-5.0 BASOPHIL % (test code=BA%) 0.4 % 0.0-1.0 NUCLEATED RBC % (test code=NRBC%) 0.0 % 0-0 NEUTROPHIL # (test code=NT#) 10.39 K/mm3 1.8-7.7 IMMATURE GRANULOCYTE # (test code=IG#) 0.08 x10 3/uL 0-0.03 LYMPHOCYTE # (test code=LY#) 1.73 K/mm3 1.0-5.0 MONOCYTE # (test code=MO#) 1.08 K/mm3 0-0.8 EOSINOPHIL # (test code=EO#) 0.04 K/mm3 0.0-0.5 BASOPHIL # (test code=BA#) 0.05 K/mm3 0.0-0.2 NUCLEATED RBC # (test code=NRBC#) 0.00 K/mm3 0.0-0.1 MANUAL DIFF REQUIRED (test code=MDIFF) NO URINALYSIS [id number] 21:59:00* Test Item Value Reference Range Comments UA COLOR (test code=COLU) Light-Yellow YELLOW UA APPEARANCE (test code=APPU) CLEAR CLEAR UA GLUCOSE DIPSTICK (test code=DGLUU) >1000 (4+) mg/dL NEGATIVE UA BILIRUBIN DIPSTICK (test code=BILU) NEGATIVE mg/dL NEGATIVE UA KETONE DIPSTICK (test code=KETU) TRACE mg/dL NEGATIVE UA SPECIFIC GRAVITY (test code=SGU) 1.048 1.001-1.035 UA BLOOD DIPSTICK (test code=JACINTO) Negative mg/dL NEGATIVE UA PH DIPSTICK (test code=TAMMY) 5.5 5.0-8.0 UA PROTEIN DIPSTICK (test code=PROU) NEGATIVE mg/dL NEGATIVE UA UROBILINIOGEN DIPSTICK (test code=URO) Normal mg/dL NEGATIVE UA NITRITE DIPSTICK (test code=MANASA) NEGATIVE NEGATIVE UA LEUKOCYTE ESTERASE W REFLEX (test code=LEUUR) NEGATIVE Jarett/uL NEGATIVE UA WBC (test code=WBCU) 6-10 per HPF 0-5 UA RBC (test code=RBCU) 6-10 #/HPF 0-5 UA EPITHELIAL CELLS (test code=EPIU) FEW per HPF FEW UA BACTERIA (test code=BACU) NONE SEEN #/HPF NONE UA MUCUS (test code=MUCU) FEW #/LPF FEW Urine Source? Clean CatchCHEMISTRY 8 [id number] 21:44:00* Test Item Value Reference Range Comments ISTAT-SODIUM (test code=NAP) mmol/L 135-148 ISTAT-POTASSIUM (test code=KP) mmol/L 3.5-5.5 ISTAT-CHLORIDE (test code=CLP) mmol/L 101-109 ISTAT CARBON DIOXIDE (test code=ISTAT-CO2) mmol/L 21-32 ISTAT CALCIUM IONIZED (test code=ISTAT-RAHAT) mg/dL 1.12-1.32 ISTAT-ANION GAP (test code=GAPP) MEQ/L 10-20 ISTAT-GLUCOSE (test code=GLUP) mg/dL 74-106 ISTAT-BUN (test code=BUNP) mg/dL 3-21 BEDSIDE CREATININE (test code=CREATBED) mg/dL 0.7-1.3 GLOMERULAR FILTRATION RATE POC (test code=GFRBED) 98 >60 CHEMISTRY 8 [id number] 21:44:00* Test Item Value Reference Range Comments ISTAT-SODIUM (test code=NAP) 137 mmol/L 135-148 ISTAT-POTASSIUM (test code=KP) 3.5 mmol/L 3.5-5.5 ISTAT-CHLORIDE (test code=CLP) 93 mmol/L 101-109 ISTAT CARBON DIOXIDE (test code=ISTAT-CO2) 32.0 mmol/L 21-32 ISTAT CALCIUM IONIZED (test code=ISTAT-RAHAT) 1.12 mg/dL 1.12-1.32 ISTAT-ANION GAP (test code=GAPP) 17.0 MEQ/L 10-20 ISTAT-GLUCOSE (test code=GLUP) 205 mg/dL 74-106 ISTAT-BUN (test code=BUNP) 14 mg/dL 3-21 BEDSIDE CREATININE (test code=CREATBED) 0.9 mg/dL 0.7-1.3 GLOMERULAR FILTRATION RATE POC (test code=GFRBED) 98 >60 LACTIC [id number] 03:18:00* Test Item Value Reference Range Comments LACTIC ACID (test code=LACT) 2.2 mmol/L 0.4-1.9 Results called to CROW [id number] by [email or web address] 02/26/19 0317Critical results verified and read back by Nurse? Y - CT NECK W/[id number] 01:36:00 Name: SUZE SIU [facility] : 1985 Age/S: 34 / M [address] Unit #: [id number] Loc: [place] [address] Phys: Simeon Ford MD Acct: [id number] Dis Date: Status: REG ER PHONE #: [phone] Exam Date: 02/26/2019111 FAX #: [phone] Reason: R sided post neck swelling h/o abscess and surg EXAMS: CPT CODE: [id number] CT NECK W/CONTRAST 83895 EXAM: CT NECK WITH CONTRAST HISTORY: R sided post neck swelling h/o abscess and surgery TECHNIQUE: Axial CT images were obtained of the neck with intravenous contrast. Coronal and sagittal reformatted images were created from the data set. One or more of the following dose reduction techniques were used: Automated exposure control, adjustment of the mA and/or kV according to patient size, and/or iterative reconstruction. COMPARISON: None FINDINGS: The aerodigestive structures are within normal limits. Specifically, the nasal cavity, nasopharynx, oral cavity, oropharynx, hypopharynx, larynx, and visualized trachea and esophagus demonstrate no masses or abnormal enhancement. No pathologically enlarged, necrotic, or otherwise abnormal lymph nodes. The parotid and submandibular glands appear within normal limits. The thyroid gland is normal in size without focal abnormality. Evaluation of the visualized portions of the brain parenchyma and orbits demonstrates no abnormality. The visualized paranasal sinuses are predominantly clear. The tympanomastoid cavities are unopacified. There is normal int ravascular enhancement. Limited evaluation of the lung apices demo nstrates no abnormality. The visualized osseous structures are within nor mal limits. Following administration of intravenous contrast mater ial, there is no abnormal enhancement. IMPRESSION: Normal neck CT. PAGE 1 Signed Report (CONTINUED) Name: SUZE SIU [facility] : 1985 Age/S: 34 / M [address] Unit #: [id number] Loc: [place] [address] Phys: Simeon Ford MD Acct: [id number] Dis Date: Status: REG ER PHONE #: [phone] Exam Date: 02/26/2019111 FAX #: [phone] Reason: R sided post neck swelling h/o abscess and surg EXAMS: CPT CODE: [id number] CT NECK W/CONTRAST 80057 <Continued> at 0136 Reported and signed by: Josh Marshall M.D. CC: Simeon Ford MD; Arnold Neville Jr, MD Technologist:DANIELLE HUSSEIN CT CTDI: DLP: Trnscb Date/Time: 02/26/2019 (0136) TomRR16 PAGE 2 Signed Report LACTIC [id number] 23:57:00* Test Item Value Reference Range Comments LACTIC ACID (test code=LACT) 2.0 mmol/L 0.4-1.9 Results called to EDO4375 by [email or web address] 02/25/19 2357Critical results verified and read back by Nurse? Y BASIC METABOLIC [id number] 23:42:00* Test Item Value Reference Range Comments SODIUM (test code=NA) 136 mmol/L 136-145 POTASSIUM (test code=K) 3.8 mmol/L 3.5-5.1 CHLORIDE (test code=CL) 100.0 mmol/L 98-107 CARBON DIOXIDE (test code=CO2) 28.0 mmol/L 21-32 ANION GAP (test code=GAP) 11.8 10-20 GLUCOSE (test code=GLU) 348 mg/dL 74-106 BLOOD UREA NITROGEN (test code=BUN) 13 mg/dL 7-18 GLOMERULAR FILTRATION RATE (test code=GFR) > 60 mL/min >=60 Estimated GFR by using Modified MDRD formula.Chronic kidney disease is defined as either kidney damageor GFR <60 mL/min/1.73 m2 for >3 months. CREATININE (test code=CREAT) 1.10 mg/dL 0.7-1.3 BUN/CREATININE RATIO (test code=BUN/CREA) 11.8 10-20 CALCIUM (test code=CA) 8.8 mg/dL 8.5-10.1 BASIC METABOLIC [id number] 23:36:00* Test Item Value Reference Range Comments SODIUM (test code=NA) 136 mmol/L 136-145 POTASSIUM (test code=K) 3.8 mmol/L 3.5-5.1 CHLORIDE (test code=CL) 100.0 mmol/L 98-107 CARBON DIOXIDE (test code=CO2) mmol/L 21-32 ANION GAP (test code=GAP) 10-20 GLUCOSE (test code=GLU) mg/dL 74-106 BLOOD UREA NITROGEN (test code=BUN) mg/dL 7-18 GLOMERULAR FILTRATION RATE (test code=GFR) mL/min >=60 CREATININE (test code=CREAT) mg/dL 0.7-1.3 BUN/CREATININE RATIO (test code=BUN/CREA) 10-20 CALCIUM (test code=CA) mg/dL 8.5-10.1 CBC W/AUTO [id number] 23:32:00* Test Item Value Reference Range Comments WHITE BLOOD CELL (test code=WBC) 9.5 K/mm3 4.5-12.5 RED BLOOD CELL (test code=RBC) 5.69 mill/mm3 4.0-5.8 HEMOGLOBIN (test code=HGB) 15.2 gram/dL 13.0-17.5 HEMATOCRIT (test code=HCT) 47.6 % 42.0-52.0 MEAN CELL VOLUME (test code=MCV) 83.7 fL 80-98 MEAN CELL HGB (test code=MCH) 26.7 picogram 27.0-33.0 MEAN CELL HGB CONCETRATION (test code=MCHC) 31.9 gram/dL 33.0-36.0 RED CELL DISTRIBUTION WIDTH (test code=RDW) 14.0 % 11.6-16.2 RED CELL DISTRIBUTION WIDTH SD (test code=RDW-SD) 42.5 fL 37.0-51.0 PLATELET COUNT (test code=PLT) 259 K/mm3 150-450 MEAN PLATELET VOLUME (test code=MPV) 9.3 fL 6.7-11.0 NEUTROPHIL % (test code=NT%) 65.9 % 39.0-69.0 IMMATURE GRANULOCYTE % (test code=IG%) 0.5 % 0.0-5.0 LYMPHOCYTE % (test code=LY%) 22.5 % 25.0-55.0 MONOCYTE % (test code=MO%) 9.2 % 0.0-10.0 EOSINOPHIL % (test code=EO%) 1.6 % 0.0-5.0 BASOPHIL % (test code=BA%) 0.3 % 0.0-1.0 NUCLEATED RBC % (test code=NRBC%) 0.0 % 0-0 NEUTROPHIL # (test code=NT#) 6.28 K/mm3 1.8-7.7 IMMATURE GRANULOCYTE # (test code=IG#) 0.05 x10 3/uL 0-0.03 LYMPHOCYTE # (test code=LY#) 2.14 K/mm3 1.0-5.0 MONOCYTE # (test code=MO#) 0.88 K/mm3 0-0.8 EOSINOPHIL # (test code=EO#) 0.15 K/mm3 0.0-0.5 BASOPHIL # (test code=BA#) 0.03 K/mm3 0.0-0.2 NUCLEATED RBC # (test code=NRBC#) 0.00 K/mm3 0.0-0.1 MANUAL DIFF REQUIRED (test code=MDIFF) NO [id number] 08:22:00* Test Item Value Reference Range Comments GLUBED (test code=GLUBED) 199 mg/dL 74-106 Performed by certified forging roll operator at [facility] [id number] 07:31:00* Test Item Value Reference Range Comments GLYCOSYLATED HEMOGLOBIN (HA1C) (test code=GLYHGB) 10.8 % HbA1 4.8-6.0 ESTIMATED AVERAGE GLUCOSE (test code=EAG) 263 MG/DL CBC W/AUTO [id number] 07:14:00* Test Item Value Reference Range Comments WHITE BLOOD CELL (test code=WBC) 8.0 K/mm3 4.5-12.5 RED BLOOD CELL (test code=RBC) 5.44 mill/mm3 4.0-5.8 HEMOGLOBIN (test code=HGB) 14.7 gram/dL 13.0-17.5 HEMATOCRIT (test code=HCT) 45.8 % 42.0-52.0 MEAN CELL VOLUME (test code=MCV) 84.2 fL 80-98 MEAN CELL HGB (test code=MCH) 27.0 picogram 27.0-33.0 MEAN CELL HGB CONCETRATION (test code=MCHC) 32.1 gram/dL 33.0-36.0 RED CELL DISTRIBUTION WIDTH (test code=RDW) 14.0 % 11.6-16.2 RED CELL DISTRIBUTION WIDTH SD (test code=RDW-SD) 42.5 fL 37.0-51.0 PLATELET COUNT (test code=PLT) 222 K/mm3 150-450 RESULT VERIFIED BY REPEAT ANALYSIS MEAN PLATELET VOLUME (test code=MPV) 9.6 fL 6.7-11.0 NEUTROPHIL % (test code=NT%) 61.9 % 39.0-69.0 IMMATURE GRANULOCYTE % (test code=IG%) 0.6 % 0.0-5.0 LYMPHOCYTE % (test code=LY%) 24.7 % 25.0-55.0 MONOCYTE % (test code=MO%) 9.7 % 0.0-10.0 EOSINOPHIL % (test code=EO%) 2.8 % 0.0-5.0 BASOPHIL % (test code=BA%) 0.3 % 0.0-1.0 NUCLEATED RBC % (test code=NRBC%) 0.0 % 0-0 NEUTROPHIL # (test code=NT#) 4.93 K/mm3 1.8-7.7 IMMATURE GRANULOCYTE # (test code=IG#) 0.05 x10 3/uL 0-0.03 LYMPHOCYTE # (test code=LY#) 1.97 K/mm3 1.0-5.0 MONOCYTE # (test code=MO#) 0.77 K/mm3 0-0.8 EOSINOPHIL # (test code=EO#) 0.22 K/mm3 0.0-0.5 BASOPHIL # (test code=BA#) 0.02 K/mm3 0.0-0.2 NUCLEATED RBC # (test code=NRBC#) 0.00 K/mm3 0.0-0.1 MANUAL DIFF REQUIRED (test code=MDIFF) NO BASIC METABOLIC [id number] 06:55:00* Test Item Value Reference Range Comments SODIUM (test code=NA) 135 mmol/L 136-145 POTASSIUM (test code=K) 3.9 mmol/L 3.5-5.1 CHLORIDE (test code=CL) 102.0 mmol/L 98-107 CARBON DIOXIDE (test code=CO2) 28.0 mmol/L 21-32 ANION GAP (test code=GAP) 8.9 10-20 GLUCOSE (test code=GLU) 184 mg/dL 74-106 BLOOD UREA NITROGEN (test code=BUN) 12 mg/dL 7-18 GLOMERULAR FILTRATION RATE (test code=GFR) > 60 mL/min >=60 Estimated GFR by using Modified MDRD formula.Chronic kidney disease is defined as either kidney damageor GFR <60 mL/min/1.73 m2 for >3 months. CREATININE (test code=CREAT) 0.80 mg/dL 0.7-1.3 BUN/CREATININE RATIO (test code=BUN/CREA) 15.0 10-20 CALCIUM (test code=CA) 8.5 mg/dL 8.5-10.1 BASIC METABOLIC [id number] 06:50:00* Test Item Value Reference Range Comments SODIUM (test code=NA) 135 mmol/L 136-145 POTASSIUM (test code=K) 3.9 mmol/L 3.5-5.1 CHLORIDE (test code=CL) 102.0 mmol/L 98-107 CARBON DIOXIDE (test code=CO2) mmol/L 21-32 ANION GAP (test code=GAP) 10-20 GLUCOSE (test code=GLU) mg/dL 74-106 BLOOD UREA NITROGEN (test code=BUN) mg/dL 7-18 GLOMERULAR FILTRATION RATE (test code=GFR) mL/min >=60 CREATININE (test code=CREAT) mg/dL 0.7-1.3 BUN/CREATININE RATIO (test code=BUN/CREA) 10-20 CALCIUM (test code=CA) mg/dL 8.5-10.1 [id number] 21:32:00* Test Item Value Reference Range Comments GLUBED (test code=GLUBED) 314 mg/dL 74-106 Performed by certified forging roll operator at [facility] [id number] 21:01:00* Test Item Value Reference Range Comments GLUBED (test code=GLUBED) 326 mg/dL 74-106 Performed by certified forging roll operator at [facility] [id number] 15:54:00* Test Item Value Reference Range Comments GLUBED (test code=GLUBED) 276 mg/dL 74-106 Performed by certified forging roll operator at [facility] [id number] 11:32:00* Test Item Value Reference Range Comments GLUBED (test code=GLUBED) 315 mg/dL 74-106 Performed by certified forging roll operator at [facility] BASIC METABOLIC [id number] 03:02:00* Test Item Value Reference Range Comments SODIUM (test code=NA) 135 mmol/L 136-145 POTASSIUM (test code=K) 3.9 mmol/L 3.5-5.1 CHLORIDE (test code=CL) 100.0 mmol/L 98-107 CARBON DIOXIDE (test code=CO2) 28.0 mmol/L 21-32 ANION GAP (test code=GAP) 10.9 10-20 GLUCOSE (test code=GLU) 302 mg/dL 74-106 BLOOD UREA NITROGEN (test code=BUN) 19 mg/dL 7-18 GLOMERULAR FILTRATION RATE (test code=GFR) > 60 mL/min >=60 Estimated GFR by using Modified MDRD formula.Chronic kidney disease is defined as either kidney damageor GFR <60 mL/min/1.73 m2 for >3 months. CREATININE (test code=CREAT) 1.00 mg/dL 0.7-1.3 BUN/CREATININE RATIO (test code=BUN/CREA) 19.0 10-20 CALCIUM (test code=CA) 8.7 mg/dL 8.5-10.1 CBC W/O [id number] 02:47:00* Test Item Value Reference Range Comments WHITE BLOOD CELL (test code=WBC) K/mm3 4.5-12.5 RED BLOOD CELL (test code=RBC) mill/mm3 4.0-5.8 HEMOGLOBIN (test code=HGB) 15.8 gram/dL 13.0-17.5 HEMATOCRIT (test code=HCT) 49.0 % 42.0-52.0 MEAN CELL VOLUME (test code=MCV) fL 80-98 MEAN CELL HGB (test code=MCH) picogram 27.0-33.0 MEAN CELL HGB CONCETRATION (test code=MCHC) gram/dL 33.0-36.0 RED CELL DISTRIBUTION WIDTH (test code=RDW) % 11.6-16.2 PLATELET COUNT (test code=PLT) K/mm3 150-450 MEAN PLATELET VOLUME (test code=MPV) fL 6.7-11.0 CBC W/O [id number] 02:47:00* Test Item Value Reference Range Comments WHITE BLOOD CELL (test code=WBC) 11.5 K/mm3 4.5-12.5 RED BLOOD CELL (test code=RBC) 5.88 mill/mm3 4.0-5.8 HEMOGLOBIN (test code=HGB) 15.8 gram/dL 13.0-17.5 HEMATOCRIT (test code=HCT) 49.0 % 42.0-52.0 MEAN CELL VOLUME (test code=MCV) 83.3 fL 80-98 MEAN CELL HGB (test code=MCH) 26.9 picogram 27.0-33.0 MEAN CELL HGB CONCETRATION (test code=MCHC) 32.2 gram/dL 33.0-36.0 RED CELL DISTRIBUTION WIDTH (test code=RDW) 14.0 % 11.6-16.2 PLATELET COUNT (test code=PLT) 278 K/mm3 150-450 MEAN PLATELET VOLUME (test code=MPV) 9.3 fL 6.7-11.0 PROCALCITONIN (PCT)2019-02-06 01:25:00* Test Item Value Reference Range Comments PROCALCITONIN (PCT) (test code=PROCAL) 0.12 ng/ml Concentration Interpretation (ng/mL) <0.51 Sepsis is not likely. Local bacterial infection is possible. (LOW RISK for progression to Sepsis) 0.51 - 2.00 Sepsis is possible, but other conditions are known to elevate PCT as well. (MODERATE RISK for progression to Sepsis) > 2.00 Sepsis is likely, unless other causes are known. (HIGH RISK for progression to Severe Sepsis or Septic Shock) 10.00 High likelihood of Severe Sepsis or Septic or higher Shock. *Increased PCT levels may not always be related to systemic bacterial infection.*Low PCT levels do not automatically exclude the presence of bacterial infection.*All results should be interpreted taking into account the patients history. BASIC METABOLIC [id number] 00:56:00* Test Item Value Reference Range Comments SODIUM (test code=NA) 141 mmol/L 136-145 POTASSIUM (test code=K) 3.4 mmol/L 3.5-5.1 CHLORIDE (test code=CL) 104.0 mmol/L 98-107 CARBON DIOXIDE (test code=CO2) 31.0 mmol/L 21-32 ANION GAP (test code=GAP) 9.4 10-20 GLUCOSE (test code=GLU) 176 mg/dL 74-106 BLOOD UREA NITROGEN (test code=BUN) 13 mg/dL 7-18 GLOMERULAR FILTRATION RATE (test code=GFR) > 60 mL/min >=60 Estimated GFR by using Modified MDRD formula.Chronic kidney disease is defined as either kidney damageor GFR <60 mL/min/1.73 m2 for >3 months. CREATININE (test code=CREAT) 0.90 mg/dL 0.7-1.3 BUN/CREATININE RATIO (test code=BUN/CREA) 14.4 10-20 CALCIUM (test code=CA) 8.8 mg/dL 8.5-10.1 HEPATIC FUNCTION [id number] 00:56:00* Test Item Value Reference Range Comments TOTAL PROTEIN (test code=PROT) 7.1 gram/dL 6.4-8.2 ALBUMIN (test code=ALB) 3.3 g/dL 3.4-5.0 GLOBULIN (test code=GLOB) 3.8 gram/dL 2.7-4.2 ALBUMIN/GLOBULIN RATIO (test code=A/G) 0.9 0.75-1.50 BILIRUBIN TOTAL (test code=BILT) 0.40 mg/dL 0.0-1.0 BILIRUBIN DIRECT (test code=BILD) 0.12 mg/dL 0.0-0.20 SGOT/AST (test code=AST) 43 IUnit/L 15-37 SGPT/ALT (test code=ALT) 152 IUnit/L 12-78 ALKALINE PHOSPHATASE TOTAL (test code=ALKP) 162 IUnit/L 45-117 Note change in reference range due to change in reagent. [id number] 00:56:00* Test Item Value Reference Range Comments TROPONIN-I (test code=TROPI) <0.015 ng/mL 0-0.045 BASIC METABOLIC [id number] 00:45:00* Test Item Value Reference Range Comments SODIUM (test code=NA) 141 mmol/L 136-145 POTASSIUM (test code=K) 3.4 mmol/L 3.5-5.1 CHLORIDE (test code=CL) 104.0 mmol/L 98-107 CARBON DIOXIDE (test code=CO2) mmol/L 21-32 ANION GAP (test code=GAP) 10-20 GLUCOSE (test code=GLU) mg/dL 74-106 BLOOD UREA NITROGEN (test code=BUN) mg/dL 7-18 GLOMERULAR FILTRATION RATE (test code=GFR) mL/min >=60 CREATININE (test code=CREAT) mg/dL 0.7-1.3 BUN/CREATININE RATIO (test code=BUN/CREA) 10-20 CALCIUM (test code=CA) mg/dL 8.5-10.1 HEPATIC FUNCTION [id number] 00:45:00* Test Item Value Reference Range Comments TOTAL PROTEIN (test code=PROT) gram/dL 6.4-8.2 ALBUMIN (test code=ALB) g/dL 3.4-5.0 GLOBULIN (test code=GLOB) gram/dL 2.7-4.2 ALBUMIN/GLOBULIN RATIO (test code=A/G) 0.75-1.50 BILIRUBIN TOTAL (test code=BILT) mg/dL 0.0-1.0 BILIRUBIN DIRECT (test code=BILD) mg/dL 0.0-0.20 SGOT/AST (test code=AST) IUnit/L 15-37 SGPT/ALT (test code=ALT) IUnit/L 12-78 ALKALINE PHOSPHATASE TOTAL (test code=ALKP) IUnit/L 45-117 [id number] 00:45:00* Test Item Value Reference Range Comments TROPONIN-I (test code=TROPI) ng/mL 0-0.045 LACTIC [id number] 23:41:00* Test Item Value Reference Range Comments LACTIC ACID (test code=LACT) 1.5 mmol/L 0.4-1.9 [id number] 23:41:00* Test Item Value Reference Range Comments GLYCOSYLATED HEMOGLOBIN (HA1C) (test code=GLYHGB) 10.8 % HbA1 4.8-6.0 ESTIMATED AVERAGE GLUCOSE (test code=EAG) 263 MG/DL - XR CHEST 1 [id number] 23:34:00 FAX: Arnold Munoz Jr, MD [phone] Mills: B St: REG Name: SUZE HELM [facility] : [birth year] Age/S: 34/M [facility] Unit #: [id number] Loc: [place] [address] Phys: Loulou Delatorre MD Acct: [id number] Dis Date: Status: REG ER PHONE #: [phone] Exam Date: 02/05/2019 2305 FAX #: [phone] Reason: CODE SEPSIS EXAMS: CPT CODE: [id number] XR CHEST 1 V 11634 AFTER HOURS SERVICE ON: 02/05/2019 11:34 PM AP Portable Chest Location Code M12 HISTORY: CODE SEPSIS FINDINGS: There are no infiltrates. There are no pleural effusions. There is no pneumothorax. Car diac silhouette and mediastinum appear within normal limits. IMPRESSION: No active pulmonary findings. at 5434 Reported and signed by: Brunilda Ibarra M.D. CC: Arnold Neville Jr, MD Technologist: BEN CODY, (R); Marlin Lomeli Trnscrd Date/Time/By: 02/05/2019 (6116) : By: [email or web address] Orig Print D/T: S: 02/05/2019 (3748) PAGE 1 Signed Report CBC W/AUTO DIFF 2019-02-05 23:18:00* Test Item Value Reference Range Comments WHITE BLOOD CELL (test code=WBC) 13.5 K/mm3 4.5-12.5 RED BLOOD CELL (test code=RBC) 5.68 mill/mm3 4.0-5.8 HEMOGLOBIN (test code=HGB) 15.0 gram/dL 13.0-17.5 HEMATOCRIT (test code=HCT) 48.0 % 42.0-52.0 MEAN CELL VOLUME (test code=MCV) 84.5 fL 80-98 MEAN CELL HGB (test code=MCH) 26.4 picogram 27.0-33.0 MEAN CELL HGB CONCETRATION (test code=MCHC) 31.3 gram/dL 33.0-36.0 RED CELL DISTRIBUTION WIDTH (test code=RDW) 14.2 % 11.6-16.2 RED CELL DISTRIBUTION WIDTH SD (test code=RDW-SD) 43.3 fL 37.0-51.0 PLATELET COUNT (test code=PLT) 276 K/mm3 150-450 MEAN PLATELET VOLUME (test code=MPV) 9.8 fL 6.7-11.0 NEUTROPHIL % (test code=NT%) 73.1 % 39.0-69.0 IMMATURE GRANULOCYTE % (test code=IG%) 0.6 % 0.0-5.0 LYMPHOCYTE % (test code=LY%) 16.4 % 25.0-55.0 MONOCYTE % (test code=MO%) 8.5 % 0.0-10.0 EOSINOPHIL % (test code=EO%) 1.1 % 0.0-5.0 BASOPHIL % (test code=BA%) 0.3 % 0.0-1.0 NUCLEATED RBC % (test code=NRBC%) 0.0 % 0-0 NEUTROPHIL # (test code=NT#) 9.88 K/mm3 1.8-7.7 IMMATURE GRANULOCYTE # (test code=IG#) 0.08 x10 3/uL 0-0.03 LYMPHOCYTE # (test code=LY#) 2.22 K/mm3 1.0-5.0 MONOCYTE # (test code=MO#) 1.15 K/mm3 0-0.8 EOSINOPHIL # (test code=EO#) 0.15 K/mm3 0.0-0.5 BASOPHIL # (test code=BA#) 0.04 K/mm3 0.0-0.2 NUCLEATED RBC # (test code=NRBC#) 0.00 K/mm3 0.0-0.1 POC LACTIC [id number] 23:17:00* Test Item Value Reference Range Comments POC LACTIC ACID (test code=POCLAC) 1.84 MMOL/L 0.4-2.2 CBC W/AUTO [id number] 23:17:00* Test Item Value Reference Range Comments WHITE BLOOD CELL (test code=WBC) K/mm3 4.5-12.5 RED BLOOD CELL (test code=RBC) mill/mm3 4.0-5.8 HEMOGLOBIN (test code=HGB) 15.0 gram/dL 13.0-17.5 HEMATOCRIT (test code=HCT) 48.0 % 42.0-52.0 MEAN CELL VOLUME (test code=MCV) fL 80-98 MEAN CELL HGB (test code=MCH) picogram 27.0-33.0 MEAN CELL HGB CONCETRATION (test code=MCHC) gram/dL 33.0-36.0 RED CELL DISTRIBUTION WIDTH (test code=RDW) % 11.6-16.2 RED CELL DISTRIBUTION WIDTH SD (test code=RDW-SD) fL 37.0-51.0 PLATELET COUNT (test code=PLT) K/mm3 150-450 MEAN PLATELET VOLUME (test code=MPV) fL 6.7-11.0 NEUTROPHIL % (test code=NT%) % 39.0-69.0 IMMATURE GRANULOCYTE % (test code=IG%) % 0.0-5.0 LYMPHOCYTE % (test code=LY%) % 25.0-55.0 MONOCYTE % (test code=MO%) % 0.0-10.0 EOSINOPHIL % (test code=EO%) % 0.0-5.0 BASOPHIL % (test code=BA%) % 0.0-1.0 NEUTROPHIL # (test code=NT#) K/mm3 1.8-7.7 LYMPHOCYTE # (test code=LY#) K/mm3 1.0-5.0 MONOCYTE # (test code=MO#) K/mm3 0-0.8 EOSINOPHIL # (test code=EO#) K/mm3 0.0-0.5 BASOPHIL # (test code=BA#) K/mm3 0.0-0.2 [id number] 01:34:00* Test Item Value Reference Range Comments GLUBED (test code=GLUBED) 270 mg/dL 74-106 Performed by certified forging roll operator at [facility] BASIC METABOLIC [id number] 06:24:00* Test Item Value Reference Range Comments SODIUM (test code=NA) 137 mmol/L 136-145 POTASSIUM (test code=K) 4.0 mmol/L 3.5-5.1 CHLORIDE (test code=CL) 102.0 mmol/L 98-107 CARBON DIOXIDE (test code=CO2) 27.0 mmol/L 21-32 ANION GAP (test code=GAP) 12.0 10-20 GLUCOSE (test code=GLU) 315 mg/dL 74-106 BLOOD UREA NITROGEN (test code=BUN) 13 mg/dL 7-18 GLOMERULAR FILTRATION RATE (test code=GFR) > 60 mL/min >=60 Estimated GFR by using Modified MDRD formula.Chronic kidney disease is defined as either kidney damageor GFR <60 mL/min/1.73 m2 for >3 months. CREATININE (test code=CREAT) 0.90 mg/dL 0.7-1.3 BUN/CREATININE RATIO (test code=BUN/CREA) 14.4 10-20 CALCIUM (test code=CA) 8.7 mg/dL 8.5-10.1 [id number] 06:24:00* Test Item Value Reference Range Comments CKMB (test code=CKMBT) 8.1 ng/mL 0-6.0 [id number] 06:24:00* Test Item Value Reference Range Comments TROPONIN-I (test code=TROPI) <0.015 ng/mL 0-0.045 BASIC METABOLIC [id number] 06:07:00* Test Item Value Reference Range Comments SODIUM (test code=NA) 137 mmol/L 136-145 POTASSIUM (test code=K) 4.0 mmol/L 3.5-5.1 CHLORIDE (test code=CL) 102.0 mmol/L 98-107 CARBON DIOXIDE (test code=CO2) mmol/L 21-32 ANION GAP (test code=GAP) 10-20 GLUCOSE (test code=GLU) mg/dL 74-106 BLOOD UREA NITROGEN (test code=BUN) mg/dL 7-18 GLOMERULAR FILTRATION RATE (test code=GFR) mL/min >=60 CREATININE (test code=CREAT) mg/dL 0.7-1.3 BUN/CREATININE RATIO (test code=BUN/CREA) 10-20 CALCIUM (test code=CA) mg/dL 8.5-10.1 [id number] 06:07:00* Test Item Value Reference Range Comments CKMB (test code=CKMBT) ng/mL 0-6.0 [id number] 06:07:00* Test Item Value Reference Range Comments TROPONIN-I (test code=TROPI) ng/mL 0-0.045 CBC W/AUTO [id number] 05:40:00* Test Item Value Reference Range Comments WHITE BLOOD CELL (test code=WBC) 9.6 K/mm3 4.5-12.5 RED BLOOD CELL (test code=RBC) 5.59 mill/mm3 4.0-5.8 HEMOGLOBIN (test code=HGB) 15.2 gram/dL 13.0-17.5 HEMATOCRIT (test code=HCT) 46.6 % 42.0-52.0 MEAN CELL VOLUME (test code=MCV) 83.4 fL 80-98 MEAN CELL HGB (test code=MCH) 27.2 picogram 27.0-33.0 MEAN CELL HGB CONCETRATION (test code=MCHC) 32.6 gram/dL 33.0-36.0 RED CELL DISTRIBUTION WIDTH (test code=RDW) 14.2 % 11.6-16.2 RED CELL DISTRIBUTION WIDTH SD (test code=RDW-SD) 42.2 fL 37.0-51.0 PLATELET COUNT (test code=PLT) 229 K/mm3 150-450 MEAN PLATELET VOLUME (test code=MPV) 9.8 fL 6.7-11.0 NEUTROPHIL % (test code=NT%) 69.3 % 39.0-69.0 IMMATURE GRANULOCYTE % (test code=IG%) 0.5 % 0.0-5.0 LYMPHOCYTE % (test code=LY%) 20.0 % 25.0-55.0 MONOCYTE % (test code=MO%) 8.2 % 0.0-10.0 EOSINOPHIL % (test code=EO%) 1.6 % 0.0-5.0 BASOPHIL % (test code=BA%) 0.4 % 0.0-1.0 NUCLEATED RBC % (test code=NRBC%) 0.0 % 0-0 NEUTROPHIL # (test code=NT#) 6.67 K/mm3 1.8-7.7 IMMATURE GRANULOCYTE # (test code=IG#) 0.05 x10 3/uL 0-0.03 LYMPHOCYTE # (test code=LY#) 1.93 K/mm3 1.0-5.0 MONOCYTE # (test code=MO#) 0.79 K/mm3 0-0.8 EOSINOPHIL # (test code=EO#) 0.15 K/mm3 0.0-0.5 BASOPHIL # (test code=BA#) 0.04 K/mm3 0.0-0.2 NUCLEATED RBC # (test code=NRBC#) 0.00 K/mm3 0.0-0.1 MANUAL DIFF REQUIRED (test code=MDIFF) NO - XR CHEST 2 [id number] 05:37:00 FAX: Jeanie Garcia [phone] [place]: St: REG Name: SUZE HELM [facility] : [birth year] Age/S: 34/M [address] [facility] Unit #: [id number] Loc: [place] [address] Phys: Jeanie Kirby MD Acct: [id number] Dis Date: Status: REG ER PHONE #: [phone] Exam Date: 01/21/2019 0510 FAX #: [phone] Reason: sob EXAMS: CPT CODE: [id number] XR CHEST 2 V 24242 AFTER HOURS SERVICE ON: 01/21/2019 5:36 AM Chest, PA and Lateral Location Code M12 History: sob Findings: There are no infil trates. There are no pleural effusions. There is no pneumothorax. Cardiac silhouette and mediastinum appear within normal limits. Impression: No active pulmonary findings. at 0537 Reported and signed by: Brunilda Ibarra M.D. CC: Jeanie Kirby MD Technologist: RT BIGG Trnscrd Date/Time/By: 01/21/2019 (0537) : By: [email or web address] Orig Print D/T: S: 01/21/2019 (9795) PAGE 1 Signed Report CBC W/AUTO [id number] 05:35:00* Test Item Value Reference Range Comments WHITE BLOOD CELL (test code=WBC) K/mm3 4.5-12.5 RED BLOOD CELL (test code=RBC) mill/mm3 4.0-5.8 HEMOGLOBIN (test code=HGB) 15.2 gram/dL 13.0-17.5 HEMATOCRIT (test code=HCT) 46.6 % 42.0-52.0 MEAN CELL VOLUME (test code=MCV) fL 80-98 MEAN CELL HGB (test code=MCH) picogram 27.0-33.0 MEAN CELL HGB CONCETRATION (test code=MCHC) gram/dL 33.0-36.0 RED CELL DISTRIBUTION WIDTH (test code=RDW) % 11.6-16.2 RED CELL DISTRIBUTION WIDTH SD (test code=RDW-SD) fL 37.0-51.0 PLATELET COUNT (test code=PLT) K/mm3 150-450 MEAN PLATELET VOLUME (test code=MPV) fL 6.7-11.0 NEUTROPHIL % (test code=NT%) % 39.0-69.0 IMMATURE GRANULOCYTE % (test code=IG%) % 0.0-5.0 LYMPHOCYTE % (test code=LY%) % 25.0-55.0 MONOCYTE % (test code=MO%) % 0.0-10.0 EOSINOPHIL % (test code=EO%) % 0.0-5.0 BASOPHIL % (test code=BA%) % 0.0-1.0 NEUTROPHIL # (test code=NT#) K/mm3 1.8-7.7 LYMPHOCYTE # (test code=LY#) K/mm3 1.0-5.0 MONOCYTE # (test code=MO#) K/mm3 0-0.8 EOSINOPHIL # (test code=EO#) K/mm3 0.0-0.5 BASOPHIL # (test code=BA#) K/mm3 0.0-0.2 BASIC METABOLIC [id number] 07:36:00* Test Item Value Reference Range Comments SODIUM (test code=NA) 136 mmol/L 136-145 POTASSIUM (test code=K) 3.8 mmol/L 3.5-5.1 CHLORIDE (test code=CL) 101.0 mmol/L 98-107 CARBON DIOXIDE (test code=CO2) 29.0 mmol/L 21-32 ANION GAP (test code=GAP) 9.8 10-20 GLUCOSE (test code=GLU) 273 mg/dL 74-106 BLOOD UREA NITROGEN (test code=BUN) 15 mg/dL 7-18 GLOMERULAR FILTRATION RATE (test code=GFR) > 60 mL/min >=60 Estimated GFR by using Modified MDRD formula.Chronic kidney disease is defined as either kidney damageor GFR <60 mL/min/1.73 m2 for >3 months. CREATININE (test code=CREAT) 0.90 mg/dL 0.7-1.3 BUN/CREATININE RATIO (test code=BUN/CREA) 16.7 10-20 CALCIUM (test code=CA) 8.4 mg/dL 8.5-10.1 [id number] 07:36:00* Test Item Value Reference Range Comments TROPONIN-I (test code=TROPI) <0.015 ng/mL 0-0.045 BASIC METABOLIC [id number] 07:24:00* Test Item Value Reference Range Comments SODIUM (test code=NA) 136 mmol/L 136-145 POTASSIUM (test code=K) 3.8 mmol/L 3.5-5.1 CHLORIDE (test code=CL) 101.0 mmol/L 98-107 CARBON DIOXIDE (test code=CO2) 29.0 mmol/L 21-32 ANION GAP (test code=GAP) 9.8 10-20 GLUCOSE (test code=GLU) mg/dL 74-106 BLOOD UREA NITROGEN (test code=BUN) mg/dL 7-18 GLOMERULAR FILTRATION RATE (test code=GFR) mL/min >=60 CREATININE (test code=CREAT) mg/dL 0.7-1.3 BUN/CREATININE RATIO (test code=BUN/CREA) 10-20 CALCIUM (test code=CA) 8.4 mg/dL 8.5-10.1 [id number] 07:24:00* Test Item Value Reference Range Comments TROPONIN-I (test code=TROPI) ng/mL 0-0.045 BASIC METABOLIC [id number] 07:23:00* Test Item Value Reference Range Comments SODIUM (test code=NA) 136 mmol/L 136-145 POTASSIUM (test code=K) 3.8 mmol/L 3.5-5.1 CHLORIDE (test code=CL) 101.0 mmol/L 98-107 CARBON DIOXIDE (test code=CO2) mmol/L 21-32 ANION GAP (test code=GAP) 10-20 GLUCOSE (test code=GLU) mg/dL 74-106 BLOOD UREA NITROGEN (test code=BUN) mg/dL 7-18 GLOMERULAR FILTRATION RATE (test code=GFR) mL/min >=60 CREATININE (test code=CREAT) mg/dL 0.7-1.3 BUN/CREATININE RATIO (test code=BUN/CREA) 10-20 CALCIUM (test code=CA) mg/dL 8.5-10.1 [id number] 07:23:00* Test Item Value Reference Range Comments TROPONIN-I (test code=TROPI) ng/mL 0-0.045 CBC W/O [id number] 06:04:00* Test Item Value Reference Range Comments WHITE BLOOD CELL (test code=WBC) 11.8 K/mm3 4.5-12.5 RED BLOOD CELL (test code=RBC) 6.02 mill/mm3 4.0-5.8 HEMOGLOBIN (test code=HGB) 15.4 gram/dL 13.0-17.5 HEMATOCRIT (test code=HCT) 50.9 % 42.0-52.0 MEAN CELL VOLUME (test code=MCV) 84.6 fL 80-98 MEAN CELL HGB (test code=MCH) 25.6 picogram 27.0-33.0 MEAN CELL HGB CONCETRATION (test code=MCHC) 30.3 gram/dL 33.0-36.0 RED CELL DISTRIBUTION WIDTH (test code=RDW) 14.5 % 11.6-16.2 PLATELET COUNT (test code=PLT) 287 K/mm3 150-450 MEAN PLATELET VOLUME (test code=MPV) 9.1 fL 6.7-11.0 CBC W/O [id number] 05:57:00* Test Item Value Reference Range Comments WHITE BLOOD CELL (test code=WBC) K/mm3 4.5-12.5 RED BLOOD CELL (test code=RBC) mill/mm3 4.0-5.8 HEMOGLOBIN (test code=HGB) 15.4 gram/dL 13.0-17.5 HEMATOCRIT (test code=HCT) 50.9 % 42.0-52.0 MEAN CELL VOLUME (test code=MCV) fL 80-98 MEAN CELL HGB (test code=MCH) picogram 27.0-33.0 MEAN CELL HGB CONCETRATION (test code=MCHC) gram/dL 33.0-36.0 RED CELL DISTRIBUTION WIDTH (test code=RDW) % 11.6-16.2 PLATELET COUNT (test code=PLT) K/mm3 150-450 MEAN PLATELET VOLUME (test code=MPV) fL 6.7-11.0 - XR CHEST 1 [id number] 05:17:00 FAX: Travis Roberts MD [phone] [place]: St: REG Name: SUZE HELM [facility] : [birth year] Age/S: 33/M [address] [facility] Unit #: [id number] Loc: [place] [address] Phys: Travis Roberts MD Acct: [id number] Dis Date: Status: REG ER PHONE #: [phone] Exam Date: 01/06/2019 0503 FAX #: [phone] Reason: CHEST PAIN EXAMS: CPT CODE: [id number] XR CHEST 1 V 04276 AFTER HOURS SERVICE ON: 01/06/2019 5:17 AM AP Portable Chest Location Code M12 HISTORY: CHEST PAIN FINDINGS: There are no in filtrates. There are no pleural effusions. There is no pneumothorax. Cardi ac silhouette and mediastinum appear within normal limits. IMPRESSION: No active pulmonary findings. at 0517 Reported and signed by: Brunilda Ibarra M.D. CC: Travis Roberts MD Technologist: RT BIGG Trnscrd Date/Time/By: 01/06/2019 (0517) : By: [email or web address] Orig Print D/T: S: 01/06/2019 (1812) PAGE 1 Signed Report DRUGS OF ABUSE SCREEN 2019-01-01 03:52:00* Test Item Value Reference Range Comments UA PH DIPSTICK (test code=TAMMY) 7.0 5.0-8.0 URN COCAINE (test code=COCAURN) NEGATIVE <300 ng/mL URN CANNABINOIDS (test code=CANNABURN) NEGATIVE <50 ng/mL URN AMPHETAMINE (test code=AMPHETURN) NEGATIVE <1000 ng/mL URN BARBITURATE (test code=BARBITURN) NEGATIVE <200 ng/mL URN BENZODIAZEPINE (test code=BENZOURN) NEGATIVE <200 ng/mL URN OPIATES (test code=OPIATURN) NEGATIVE <300 ng/mL URN PHENCYCLIDINE (PCP) (test code=PHENCURN) NEGATIVE <25 ng/mL URN METHADONE (test code=METHAURN) NEGATIVE <300 ng/mL DRUGS OF ABUSE SCREEN [id number] 03:21:00* Test Item Value Reference Range Comments UA PH DIPSTICK (test code=TAMMY) 7.0 5.0-8.0 URN COCAINE (test code=COCAURN) <300 ng/mL URN CANNABINOIDS (test code=CANNABURN) <50 ng/mL URN AMPHETAMINE (test code=AMPHETURN) <1000 ng/mL URN BARBITURATE (test code=BARBITURN) <200 ng/mL URN BENZODIAZEPINE (test code=BENZOURN) <200 ng/mL URN OPIATES (test code=OPIATURN) <300 ng/mL URN PHENCYCLIDINE (PCP) (test code=PHENCURN) <25 ng/mL URN METHADONE (test code=METHAURN) <300 ng/mL B-TYPE NATRIURETIC [id number] 03:10:00* Test Item Value Reference Range Comments B-TYPE NATRIURETIC PEPTIDE (test code=BNP) 3.20 pgram/mL 0-100 - XR CHEST 1 [id number] 02:13:00 FAX: Simeon Ford MD [phone] [place]: B St: REG Name: SUZE HELM [facility] : [birth year] Age/S: 33/M [address] [facility] Unit #: [id number] Loc: [place] [address] Phys: Simeon Ford MD Acct: [id number] Dis Date: Status: REG ER PHONE #: [phone] Exam Date: 01/01/2019 0208 FAX #: [phone] Reason: cough sob EXAMS: CPT CODE: [id number] XR CHEST 1 V 09671 EXAM: - XR CHEST 1 V HISTORY: Cough shortness of breath. COMPARISON: October 19, 2018. FINDINGS: Single AP view of the chest is provided. Heart size and vascularity are within normal limits. The lungs are clear of focal consolidation. No effusion, pneumothorax, or acute osseous abnormality. There is no interval change. IMPRESSION: No radiographic evidence of acute cardiopulmonary process. Elec tronically Signed by Kwaku Espino MD on 01/01/2019 at 0213 Reported and signed by: Kwaku Espino MD CC: Simeon Ford MD Technologist: Katiana Nevarez Trnscrd Date/Time/By: 01/01/2019 (021) : By: [email or web address] Orig Print D/T: S: 01/01/2019 (0216) PAGE 1 Signed Report BASIC METABOLIC [id number] 01:49:00* Test Item Value Reference Range Comments SODIUM (test code=NA) 136 mmol/L 136-145 POTASSIUM (test code=K) 3.7 mmol/L 3.5-5.1 CHLORIDE (test code=CL) 99.0 mmol/L 98-107 CARBON DIOXIDE (test code=CO2) 32.0 mmol/L 21-32 ANION GAP (test code=GAP) 8.7 10-20 GLUCOSE (test code=GLU) 351 mg/dL 74-106 BLOOD UREA NITROGEN (test code=BUN) 13 mg/dL 7-18 GLOMERULAR FILTRATION RATE (test code=GFR) > 60 mL/min >=60 Estimated GFR by using Modified MDRD formula.Chronic kidney disease is defined as either kidney damageor GFR <60 mL/min/1.73 m2 for >3 months. CREATININE (test code=CREAT) 1.10 mg/dL 0.7-1.3 BUN/CREATININE RATIO (test code=BUN/CREA) 11.8 10-20 CALCIUM (test code=CA) 8.8 mg/dL 8.5-10.1 HEPATIC FUNCTION [id number] 01:49:00* Test Item Value Reference Range Comments TOTAL PROTEIN (test code=PROT) 7.3 gram/dL 6.4-8.2 ALBUMIN (test code=ALB) 3.2 g/dL 3.4-5.0 GLOBULIN (test code=GLOB) 4.1 gram/dL 2.7-4.2 ALBUMIN/GLOBULIN RATIO (test code=A/G) 0.8 0.75-1.50 BILIRUBIN TOTAL (test code=BILT) 0.30 mg/dL 0.0-1.0 BILIRUBIN DIRECT (test code=BILD) 0.12 mg/dL 0.0-0.20 SGOT/AST (test code=AST) 53 IUnit/L 15-37 SGPT/ALT (test code=ALT) 128 IUnit/L 12-78 ALKALINE PHOSPHATASE TOTAL (test code=ALKP) 193 IUnit/L 45-117 Note change in reference range due to change in reagent. [id number] 01:49:00* Test Item Value Reference Range Comments LIPASE (test code=LIP) 69 U/L 73.0-393.0 [id number] 01:49:00* Test Item Value Reference Range Comments TROPONIN-I (test code=TROPI) <0.015 ng/mL 0-0.045 URINALYSIS [id number] 01:43:00* Test Item Value Reference Range Comments UA COLOR (test code=COLU) LIGHT YELLOW YELLOW UA APPEARANCE (test code=APPU) CLEAR CLEAR UA GLUCOSE DIPSTICK (test code=DGLUU) >=500 mg/dL NEGATIVE UA BILIRUBIN DIPSTICK (test code=BILU) NEGATIVE mg/dL NEGATIVE UA KETONE DIPSTICK (test code=KETU) Negative mg/dL NEGATIVE UA SPECIFIC GRAVITY (test code=SGU) 1.030 1.001-1.035 UA BLOOD DIPSTICK (test code=JACINTO) Negative NEGATIVE UA PH DIPSTICK (test code=TAMMY) 7.0 5.0-8.0 UA PROTEIN DIPSTICK (test code=PROU) Negative mg/dL NEGATIVE UA UROBILINIOGEN DIPSTICK (test code=URO) 4.0 (2+) mg/dL NEGATIVE UA NITRITE DIPSTICK (test code=MANASA) NEGATIVE NEGATIVE UA LEUKOCYTE ESTERASE W REFLEX (test code=LEUUR) NEGATIVE NEGATIVE UA WBC (test code=WBCU) 0-5 #/HPF 0-5 UA RBC (test code=RBCU) 0-2 #/HPF 0-5 UA EPITHELIAL CELLS (test code=EPIU) FEW per HPF FEW UA BACTERIA (test code=BACU) NONE SEEN #/HPF NONE Urine Source? Clean CatchCBC W/O [id number] 01:39:00* Test Item Value Reference Range Comments WHITE BLOOD CELL (test code=WBC) 8.6 K/mm3 4.5-12.5 RED BLOOD CELL (test code=RBC) 5.59 mill/mm3 4.0-5.8 HEMOGLOBIN (test code=HGB) 15.1 gram/dL 13.0-17.5 HEMATOCRIT (test code=HCT) 47.4 % 42.0-52.0 MEAN CELL VOLUME (test code=MCV) 84.8 fL 80-98 MEAN CELL HGB (test code=MCH) 27.0 picogram 27.0-33.0 MEAN CELL HGB CONCETRATION (test code=MCHC) 31.9 gram/dL 33.0-36.0 RED CELL DISTRIBUTION WIDTH (test code=RDW) 14.0 % 11.6-16.2 PLATELET COUNT (test code=PLT) 265 K/mm3 150-450 MEAN PLATELET VOLUME (test code=MPV) 9.2 fL 6.7-11.0 BASIC METABOLIC [id number] 01:39:00* Test Item Value Reference Range Comments SODIUM (test code=NA) 136 mmol/L 136-145 POTASSIUM (test code=K) 3.7 mmol/L 3.5-5.1 CHLORIDE (test code=CL) 99.0 mmol/L 98-107 CARBON DIOXIDE (test code=CO2) mmol/L 21-32 ANION GAP (test code=GAP) 10-20 GLUCOSE (test code=GLU) mg/dL 74-106 BLOOD UREA NITROGEN (test code=BUN) mg/dL 7-18 GLOMERULAR FILTRATION RATE (test code=GFR) mL/min >=60 CREATININE (test code=CREAT) mg/dL 0.7-1.3 BUN/CREATININE RATIO (test code=BUN/CREA) 10-20 CALCIUM (test code=CA) mg/dL 8.5-10.1 HEPATIC FUNCTION [id number] 01:39:00* Test Item Value Reference Range Comments TOTAL PROTEIN (test code=PROT) gram/dL 6.4-8.2 ALBUMIN (test code=ALB) g/dL 3.4-5.0 GLOBULIN (test code=GLOB) gram/dL 2.7-4.2 ALBUMIN/GLOBULIN RATIO (test code=A/G) 0.75-1.50 BILIRUBIN TOTAL (test code=BILT) mg/dL 0.0-1.0 BILIRUBIN DIRECT (test code=BILD) mg/dL 0.0-0.20 SGOT/AST (test code=AST) IUnit/L 15-37 SGPT/ALT (test code=ALT) IUnit/L 12-78 ALKALINE PHOSPHATASE TOTAL (test code=ALKP) IUnit/L 45-117 [id number] 01:39:00* Test Item Value Reference Range Comments LIPASE (test code=LIP) U/L 73.0-393.0 [id number] 01:39:00* Test Item Value Reference Range Comments TROPONIN-I (test code=TROPI) ng/mL 0-0.045 - CT PELVIS [id number] 03:05:00 Name: SUZE SIU [facility] : 1985 Age/S: 33 / M [address] [facility] Unit #: [id number] Loc: [place] [address] Phys: MICHELL CUMMINS MD Acct: [id number] Dis Date: Status: REG ER PHONE #: [phone] Exam Date: 11/28/2018252 FAX #: [phone] Reason: vastitis? groin abscesses EXAMS: CPT CODE: [id number] CT PELVIS W/CONTRAST 14291 LOCATION: Q15 HISTORY: 33-year-old male with bilateral groin abscesses. COMMENT: Field [address] imaging of this patient's pelvis was obtained with IV contrast. Coronal and sagittal soft tissue reconstructions were included. Coronal and sagittal reconstructions were included. Ultrasound imaging of the medial thighs obtained earlier this morning are available for comparison. CONTRAST: 150 mL of Isovue-300 nonionic contrast was utilized. One or more of the following dose reduction techniques are used: Automated exposure control, adjustment of the mA and/or kV according the patient size, and/or utilization of iterative reconstruction technique. DLP: 1311.88 mGy-cm FINDINGS: Lung the medial aspects of both right and left thighs there are numerous areas of soft tissue subcutaneous swelling, compatible with small abscess pocket to keeping with the recent ultrasound findings. No gas is seen in the perineum or scrotum, indicating that there is no evidence of Brennon gangrene. The recent is collection imaging demonstrated a soft tissue density in the left inguinal canal which was concerning for possible vasitis. The review of the CT study demonstrates no suspicious finding in the left inguinal canal to account for the ultrasound finding. There is no evidence of a angle hernia defect. Therefore, the finding on the ultrasound examination is indeterminate. The pelvic viscera is unremarkable. The lower intestinal tract exhibits no acute findings. Prostate gland and urinary bladder, and seminal vesicles are unremarkable. The musculoskeletal anatomy exhibits no acute find ings. IMPRESSION: PAGE 1 Signed Repor t (CONTINUED) Name: SUZE SIU [facility] : 1985 Age/S: 33 / M [address] [facility] [facility] Unit #: [id number] Loc: [place], [place] [address] Phys: MICHELL CUMMINS MD Acct: [id number] Dis Date: Status: REG ER PHONE #: [phone] Exam Date: 11/28/2018252 FAX #: [phone] Reason: vastitis? groin abscesses EXAMS: CPT CODE: [id number] CT PELVIS W/CONTRAST 24889 < Continued> Several small areas of the subcutaneous thickening is seen in both right and left medial thighs, likely representing small abscess pockets in keeping with the recent ultrasound findings. There is no evidence of gas in the area of inflammation, indicating no evidence of Brennon gangrene. Please see above comments for more details. at 0305 Reported and signed by: Tariq Roberts M.D. CC: MICHELL CUMMINS MD Technologist:Pedro Redman, RT(R)(CT) CTDI: DLP: Trnscb Date/Time: 11/28/2018 (030) [email or web address] Orig Print D/T: S: 11/28/2018 (308) CTDI: DLP: PAGE 2 Signed Report URINALYSIS [id number] 02:11:00* Test Item Value Reference Range Comments UA COLOR (test code=COLU) DARK YELLOW YELLOW UA APPEARANCE (test code=APPU) CLEAR CLEAR UA GLUCOSE DIPSTICK (test code=DGLUU) NEGATIVE mg/dL NEGATIVE UA BILIRUBIN DIPSTICK (test code=BILU) 2+ (MOD) mg/dL NEGATIVE UA KETONE DIPSTICK (test code=KETU) 5 (Trace) mg/dL NEGATIVE UA SPECIFIC GRAVITY (test code=SGU) 1.045 1.001-1.035 UA BLOOD DIPSTICK (test code=JACINTO) Negative NEGATIVE UA PH DIPSTICK (test code=TAMMY) 5.0 5.0-8.0 UA PROTEIN DIPSTICK (test code=PROU) 100 (2+) mg/dL NEGATIVE UA UROBILINIOGEN DIPSTICK (test code=URO) 4.0 (2+) mg/dL NEGATIVE UA NITRITE DIPSTICK (test code=MANASA) NEGATIVE NEGATIVE UA LEUKOCYTE ESTERASE W REFLEX (test code=LEUUR) NEGATIVE NEGATIVE UA WBC (test code=WBCU) 0-5 #/HPF 0-5 UA RBC (test code=RBCU) 0-2 #/HPF 0-5 UA EPITHELIAL CELLS (test code=EPIU) FEW per HPF FEW UA HYALINE CAST (test code=HYALU) 3-5 #/LPF 0-5 UA MUCUS (test code=MUCU) MANY #/LPF FEW Urine Source? Clean Catch- US EXTREM NON VASC [id number] 01:48:00 Name: SUZE SIU [facility] : 1985 Age/S: 33 / M [address] Unit #: [id number] Loc: [place] [address] Phys: BRIELLE CUMMINS MD Acct: [id number] Di s Date: Status: REG ER PHONE #: Exam Date: 11/28/2018 0121 FAX #: Reason: b/l abscesses around groin EXAMS: CPT CODE: [id number] [facility] [address] LOCATION: Q15 HISTORY: 33-year-old male who presents with the inflammation in the pat ient's medial thighs for the past 2 days. COMMENT: S onographic imaging of this patient's right and left medial thighs was obta ined. Clinical concern is abscess pocket. Multiple hypoechoic tao ections are seen in the subcutaneous soft tissues of both right and left m edial thighs. Abscess pockets are not excluded. Given previo us history of the diabetes and the findings noted above of probable subcut aneous abscess is in the medial thighs, repeat CT imaging of the pelvis is suggested to include the proximal thighs to exclude the possibility of the development of Brennon gangrene. IMPRESSION: Multiple subcutaneous collections are seen, suspicious for a inflammat ion such as cellulitis and potential abscess pocket. Please see above co mments for follow-up imaging suggestions. Electronically S igned by Tariq Roberts M.D. on 11/28/2018 at 0148 Reported and signed by: Tariq Roberts M.D. CC: MICHELL CUMMINS MD Technol ogist: GILL AL ARSUMANS Trnscb Date/Time: 11/28/2018 (0148) [email or web address] Orig Print D/T: S: 11/28/2018 (0152) Probe: PAGE 1 Signed Re port - DUP AB/PEL/SC [id number] 01:45:00 Name: SUZE SI[facility] : 1985 Age/S: 33 / M [address] Unit #: [id number] Loc: [place] [address] Phys: BRIELLE CUMMINS MD Acct: [id number] Di s Date: Status: REG ER PHONE #: Exam Date: 11/28/2018 010 FAX #: [phone] Reason: left testicular pain EXAMS: CPT CODE: [id number] DUP AB/PEL/SC COMP 70872 LOCATION: Q15 HISTORY: 33-year-old male who presents with left-sided testicular pain. COMMENT: Sonographic imaging of this patient's scrotum and contents was obtained. Grayscale, color-flow, and Doppler waveform imaging modalities were utilized. RIGHT SIDE: The testicle measures 37 x 21 x 29 mm and exhibits normal echotexture. The epididymis measures 5.9 x 7 mm. Low-resistance arterial blood flow seen in the testicle on the Doppler study. There is no evidence of hydrocele or varicocele. LEFT SIDE: The testicle measures 37 x 21 x 20 mm and exhibits normal echotexture. Low-resistance arterial blood f low seen on the Doppler study. The epididymis measures 5 x 11 x 13 mm. The re is no evidence of a hydrocele. Noted in the left spermati c cord is diffuse prominence of the anatomy measuring 6.1 x 2.4 x 3.5 cm, having the appearance of diffuse spermatic cord edema. There is increased flow vascularity following Valsalva maneuver suggesting the presence of va ricocele. However, given the extreme edema vasitis is not excluded and cli nical correlation is suggested. Notable is a lack of the per istalsis in this finding, therefore and inguinal hernia is considered unli brittnee. On recent CT imaging of the abdomen and pelvis dated June 13, no inguinal hernia is seen in the left groin. IMPRESSI ON: The left spermatic cord anatomy is diffusely swollen as ou tlined above. Clinical correlation is suggested regarding the possibilit y this representing vasitis. Please see above comments for details. There is also evidence of a varicocele in the left hemiscrotum. PAGE 1 Signed Report (CONT INUED) Name: SUZE SI[facility] : 1985 Age/S: 33 / M [address] [facility] Unit #: [id number] Loc: [place] [address] Phys: MICHELL BECKER MD Acct: [id number] Dis Date: Status: REG ER PETE NE #: [phone] Exam Date: 11/28/2018103 FAX #: [phone] Reason: left testicular pain EXAM S: CPT CODE: [id number] DUP AB /PEL/SC COMP 06370 <Continued> Otherwise, the scrotal ultrasound examination is unremarkable. at 0145 Reported and signed by: Tariq Roberts M.D. CC: MICHELL CUMMINS MD Technologist: GILL JIMENEZ Trndeb Date/Time: 11/28/2018 (144) [email or web address] Orig Print D/T: S: 11/28/2018 (014) Probe: PAGE 2 Signed Report - US SCROTUM AND [id number] 01:45:00 Name: SUZE SIU [facility] : 1985 Age/S: 33 / M [address] [facility] Unit #: [id number] Loc: [place] [address] Phys: MICHELL CUMMINS MD Acct: [id number] Dis Date: Status: REG ER PHONE #: [phone] Exam Date: 11/28/2018103 FAX #: [phone] Reason: left testicular pain EXAMS: CPT CODE: [id number] US SCROTUM AND CNTS 71022 LOCATION: Q15 HISTORY: 33-year-old male who presents with left-sided testicular pain. COMMENT: Sonographic imaging of this patient's scrotum and contents was obtained. Grayscale, color-flow, and Doppler waveform imaging modalities were utilized. RIGHT SIDE: The testicle measures 37 x 21 x 29 mm and exhibits normal echotexture. The epididymis measures 5.9 x 7 mm. Low-resistance arterial blood flow seen in the testicle on the Doppler study. There is no evidence of hydrocele or varicocele. LEFT SIDE: The testicle measures 37 x 21 x 20 mm and exhibits normal echotexture. Low-resistance arterial blood flow seen on the Doppler study. The epididymis measures 5 x 11 x 13 mm. There is no evidence of a hydrocele. Noted in the left spermatic cord is diffuse prominence of the anatomy measuring 6.1 x 2.4 x 3.5 cm, having the appearance of diffuse spermatic cord edema. There is increased flow vascularity following Valsalva maneuver suggesting the presence of varicocele. However, given the extreme edema vasitis is not excluded and clinical correlation is suggested. Notable is a lack of the peristalsis in this finding, therefore and inguinal hernia is considered unlikely. On recent CT imaging of the abdomen and pelvis dated June 13, 2018, no inguinal hernia is seen in the left groin. IMPRESSION: The left spermatic cord anatomy is diffusely swollen as outlined above. Clinical correlation is suggested regarding the possibility this representing vasitis. Please see above comments for details. There is also evidence of a varicocele in the left hemiscrotum. PAGE 1 Signed Report (CONTINUED) Name: SUZE [facility] : 1985 Age/S: 33 / M [address] [facility] Unit #: [id number] Loc: [place] [address] Phys: MICHELL BECKER MD Acct: [id number] Dis Date: Status: REG ER PETE NE #: [phone] Exam Date: 11/28/2018 0104 FAX #: [phone] Reason: left testicular pain EXAM S: CPT CODE: [id number] US SCR OTUM AND CNTS 12619 <Continued> Otherwise, the scrotal ultrasound examination is unremarkable. at 0145 Reported and signed by: Tariq Roberts M.D. CC: MICHELL CUMMINS MD Technologist: GILL AL ARDAX Trnscb Date/Time: 11/28/2018 (014) [email or web address] Orig Print D/T: S: 11/28/2018 (014) Probe: PAGE 2 Signed Report PROCALCITONIN (PCT)2018-11-28 01:16:00* Test Item Value Reference Range Comments PROCALCITONIN (PCT) (test code=PROCAL) 0.09 ng/ml Concentration Interpretation (ng/mL) <0.51 Sepsis is not likely. Local bacterial infection is possible. (LOW RISK for progression to Sepsis) 0.51 - 2.00 Sepsis is possible, but other conditions are known to elevate PCT as well. (MODERATE RISK for progression to Sepsis) > 2.00 Sepsis is likely, unless other causes are known. (HIGH RISK for progression to Severe Sepsis or Septic Shock) 10.00 High likelihood of Severe Sepsis or Septic or higher Shock. *Increased PCT levels may not always be related to systemic bacterial infection.*Low PCT levels do not automatically exclude the presence of bacterial infection.*All results should be interpreted taking into account the patients history. HEPATIC FUNCTION [id number] 00:51:00* Test Item Value Reference Range Comments TOTAL PROTEIN (test code=PROT) 7.6 gram/dL 6.4-8.2 ALBUMIN (test code=ALB) 3.4 g/dL 3.4-5.0 GLOBULIN (test code=GLOB) 4.2 gram/dL 2.7-4.2 ALBUMIN/GLOBULIN RATIO (test code=A/G) 0.8 0.75-1.50 BILIRUBIN TOTAL (test code=BILT) 0.40 mg/dL 0.0-1.0 BILIRUBIN DIRECT (test code=BILD) 0.12 mg/dL 0.0-0.20 SGOT/AST (test code=AST) 70 IUnit/L 15-37 SGPT/ALT (test code=ALT) 178 IUnit/L 12-78 ALKALINE PHOSPHATASE TOTAL (test code=ALKP) 147 IUnit/L 45-117 Note change in reference range due to change in reagent. [id number] 00:51:00* Test Item Value Reference Range Comments TROPONIN-I (test code=TROPI) <0.015 ng/mL 0-0.045 BASIC METABOLIC [id number] 00:50:00* Test Item Value Reference Range Comments SODIUM (test code=NA) 140 mmol/L 136-145 POTASSIUM (test code=K) 3.9 mmol/L 3.5-5.1 CHLORIDE (test code=CL) 100.0 mmol/L 98-107 CARBON DIOXIDE (test code=CO2) 29.0 mmol/L 21-32 ANION GAP (test code=GAP) 14.9 10-20 GLUCOSE (test code=GLU) 205 mg/dL 74-106 BLOOD UREA NITROGEN (test code=BUN) 15 mg/dL 7-18 GLOMERULAR FILTRATION RATE (test code=GFR) > 60 mL/min >=60 Estimated GFR by using Modified MDRD formula.Chronic kidney disease is defined as either kidney damageor GFR <60 mL/min/1.73 m2 for >3 months. CREATININE (test code=CREAT) 1.00 mg/dL 0.7-1.3 BUN/CREATININE RATIO (test code=BUN/CREA) 15.6 10-20 CALCIUM (test code=CA) 9.0 mg/dL 8.5-10.1 LACTIC [id number] 00:50:00* Test Item Value Reference Range Comments LACTIC ACID (test code=LACT) 1.3 mmol/L 0.4-1.9 BASIC METABOLIC [id number] 00:33:00* Test Item Value Reference Range Comments SODIUM (test code=NA) 140 mmol/L 136-145 POTASSIUM (test code=K) 3.9 mmol/L 3.5-5.1 CHLORIDE (test code=CL) 100.0 mmol/L 98-107 CARBON DIOXIDE (test code=CO2) mmol/L 21-32 ANION GAP (test code=GAP) 10-20 GLUCOSE (test code=GLU) mg/dL 74-106 BLOOD UREA NITROGEN (test code=BUN) mg/dL 7-18 GLOMERULAR FILTRATION RATE (test code=GFR) mL/min >=60 CREATININE (test code=CREAT) mg/dL 0.7-1.3 BUN/CREATININE RATIO (test code=BUN/CREA) 10-20 CALCIUM (test code=CA) mg/dL 8.5-10.1 CBC W/AUTO [id number] 00:19:00* Test Item Value Reference Range Comments WHITE BLOOD CELL (test code=WBC) 11.4 K/mm3 4.5-12.5 RED BLOOD CELL (test code=RBC) 5.59 mill/mm3 4.0-5.8 HEMOGLOBIN (test code=HGB) 15.0 gram/dL 13.0-17.5 HEMATOCRIT (test code=HCT) 47.6 % 42.0-52.0 MEAN CELL VOLUME (test code=MCV) 85.2 fL 80-98 MEAN CELL HGB (test code=MCH) 26.8 picogram 27.0-33.0 MEAN CELL HGB CONCETRATION (test code=MCHC) 31.5 gram/dL 33.0-36.0 RED CELL DISTRIBUTION WIDTH (test code=RDW) 14.6 % 11.6-16.2 RED CELL DISTRIBUTION WIDTH SD (test code=RDW-SD) 44.5 fL 37.0-51.0 PLATELET COUNT (test code=PLT) 240 K/mm3 150-450 MEAN PLATELET VOLUME (test code=MPV) 9.7 fL 6.7-11.0 NEUTROPHIL % (test code=NT%) 66.9 % 39.0-69.0 IMMATURE GRANULOCYTE % (test code=IG%) 0.9 % 0.0-5.0 LYMPHOCYTE % (test code=LY%) 20.9 % 25.0-55.0 MONOCYTE % (test code=MO%) 9.9 % 0.0-10.0 EOSINOPHIL % (test code=EO%) 1.1 % 0.0-5.0 BASOPHIL % (test code=BA%) 0.3 % 0.0-1.0 NUCLEATED RBC % (test code=NRBC%) 0.0 % 0-0 NEUTROPHIL # (test code=NT#) 7.62 K/mm3 1.8-7.7 IMMATURE GRANULOCYTE # (test code=IG#) 0.10 x10 3/uL 0-0.03 LYMPHOCYTE # (test code=LY#) 2.38 K/mm3 1.0-5.0 MONOCYTE # (test code=MO#) 1.13 K/mm3 0-0.8 EOSINOPHIL # (test code=EO#) 0.13 K/mm3 0.0-0.5 BASOPHIL # (test code=BA#) 0.03 K/mm3 0.0-0.2 NUCLEATED RBC # (test code=NRBC#) 0.00 K/mm3 0.0-0.1 POC LACTIC [id number] 23:57:00* Test Item Value Reference Range Comments POC LACTIC ACID (test code=POCLAC) 1.44 MMOL/L 0.4-2.2 LACTIC [id number] 15:56:00* Test Item Value Reference Range Comments LACTIC ACID (test code=LACT) 1.4 mmol/L 0.4-1.9 COMPREHENSIVE METABOLIC [id number] 15:52:00* Test Item Value Reference Range Comments SODIUM (test code=NA) 134 mmol/L 136-145 POTASSIUM (test code=K) 3.7 mmol/L 3.5-5.1 CHLORIDE (test code=CL) 99.0 mmol/L 98-107 CARBON DIOXIDE (test code=CO2) 31.0 mmol/L 21-32 ANION GAP (test code=GAP) 7.7 10-20 GLUCOSE (test code=GLU) 295 mg/dL 74-106 BLOOD UREA NITROGEN (test code=BUN) 10 mg/dL 7-18 GLOMERULAR FILTRATION RATE (test code=GFR) > 60 mL/min >=60 Estimated GFR by using Modified MDRD formula.Chronic kidney disease is defined as either kidney damageor GFR <60 mL/min/1.73 m2 for >3 months. CREATININE (test code=CREAT) 1.10 mg/dL 0.7-1.3 BUN/CREATININE RATIO (test code=BUN/CREA) 9.3 10-20 TOTAL PROTEIN (test code=PROT) 7.1 gram/dL 6.4-8.2 ALBUMIN (test code=ALB) 3.3 g/dL 3.4-5.0 GLOBULIN (test code=GLOB) 3.8 gram/dL 2.7-4.2 ALBUMIN/GLOBULIN RATIO (test code=A/G) 0.9 0.75-1.50 CALCIUM (test code=CA) 9.0 mg/dL 8.5-10.1 BILIRUBIN TOTAL (test code=BILT) 0.30 mg/dL 0.0-1.0 SGOT/AST (test code=AST) 40 IUnit/L 15-37 SGPT/ALT (test code=ALT) 101 IUnit/L 12-78 ALKALINE PHOSPHATASE TOTAL (test code=ALKP) 136 IUnit/L 45-117 Note change in reference range due to change in reagent. CBC W/AUTO [id number] 15:33:00* Test Item Value Reference Range Comments WHITE BLOOD CELL (test code=WBC) 7.4 K/mm3 4.5-12.5 RED BLOOD CELL (test code=RBC) 5.51 mill/mm3 4.0-5.8 HEMOGLOBIN (test code=HGB) 14.7 gram/dL 13.0-17.5 HEMATOCRIT (test code=HCT) 47.1 % 42.0-52.0 MEAN CELL VOLUME (test code=MCV) 85.5 fL 80-98 MEAN CELL HGB (test code=MCH) 26.7 picogram 27.0-33.0 MEAN CELL HGB CONCETRATION (test code=MCHC) 31.2 gram/dL 33.0-36.0 RED CELL DISTRIBUTION WIDTH (test code=RDW) 14.4 % 11.6-16.2 RED CELL DISTRIBUTION WIDTH SD (test code=RDW-SD) 44.6 fL 37.0-51.0 PLATELET COUNT (test code=PLT) 205 K/mm3 150-450 MEAN PLATELET VOLUME (test code=MPV) 9.2 fL 6.7-11.0 NEUTROPHIL % (test code=NT%) 63.9 % 39.0-69.0 IMMATURE GRANULOCYTE % (test code=IG%) 0.4 % 0.0-5.0 LYMPHOCYTE % (test code=LY%) 25.2 % 25.0-55.0 MONOCYTE % (test code=MO%) 8.2 % 0.0-10.0 EOSINOPHIL % (test code=EO%) 2.0 % 0.0-5.0 BASOPHIL % (test code=BA%) 0.3 % 0.0-1.0 NUCLEATED RBC % (test code=NRBC%) 0.0 % 0-0 NEUTROPHIL # (test code=NT#) 4.73 K/mm3 1.8-7.7 IMMATURE GRANULOCYTE # (test code=IG#) 0.03 x10 3/uL 0-0.03 LYMPHOCYTE # (test code=LY#) 1.87 K/mm3 1.0-5.0 MONOCYTE # (test code=MO#) 0.61 K/mm3 0-0.8 EOSINOPHIL # (test code=EO#) 0.15 K/mm3 0.0-0.5 BASOPHIL # (test code=BA#) 0.02 K/mm3 0.0-0.2 NUCLEATED RBC # (test code=NRBC#) 0.00 K/mm3 0.0-0.1 MANUAL DIFF REQUIRED (test code=MDIFF) NO [id number] 20:58:00* Test Item Value Reference Range Comments GLUBED (test code=GLUBED) 287 mg/dL 74-106 Performed by certified forging roll operator at [facility] [id number] 20:12:00* Test Item Value Reference Range Comments GLUBED (test code=GLUBED) 272 mg/dL 74-106 Performed by certified forging roll operator at [facility]
== END 2019-03-07 23:24 | disposition short-term general hospital (02) ==
LOC: ER 23:09
DX: Z53.21 Procedure and treatment not carried out due to patient leaving prior to being seen by health care provider (principal)